=== PATIENT | male | born 1980 | race Caucasian/White ===

== ENCOUNTER 2018-04-02 02:05 | Outpatient (CLI) | payer OTHER, SELFPAY ==
[2018-04-02 10:07] LABS: ALT 57 U/L (12-78); AST 34 U/L (15-37); Alkaline Phosphatase 41 U/L (46-116); Anion Gap 10.8 mmol/L (3-11); BUN 9 mg/dL (7-18); Bilirubin, Total 0.5 mg/dL (0.2-1.0); CO2 28.2 mmol/L (21.0-32.0); CREATININE 1.06 mg/dL (0.70-1.30); Calcium 9.5 mg/dL (8.5-10.1); Chloride 101 mmol/L (98-107); Cholesterol 213 mg/dL (50-200); Glucose 92 mg/dL (70-100); HDL Cholesterol 39 mg/dL (40-60); LDL CHOLESTEROL 145 mg/dL (<100); Potassium 4.3 mmol/L (3.5-5.1); Sodium 140 mmol/L (136-145); Total Protein 7.4 g/dL (6.4-8.2); Triglyceride 210 mg/dL (30-150)
== END 2018-04-02 02:25 ==
PROVIDERS: PCP Specialist/Technologist Athletic Trainer; Visit Provider Specialist/Technologist Athletic Trainer
DX: Z00.00 Encounter for general adult medical examination without abnormal findings (principal); I10 Essential (primary) hypertension
CPT/HCPCS: 36415; 80053; 80061; 83721

== ENCOUNTER 2018-06-15 08:05 | Emergency (ER) | payer OTHER, SELFPAY ==
[2018-06-15 08:09] VITALS: BP 113/78; PULSE 120; RESP 18; TEMP 37.5; O2SAT 100
--- NOTE | 2018-06-15 08:20 | W.ED.GENAD ---
Discharge Plan Disposition Patient Disposition: HOME Condition: Improving Discharge Details Chief Complaint: Abd Prob Clinical Impression: Acute diverticulitis Primary Care Provider: Curt Roman ED Provider: Mona Spaulding Home Meds and New Rx's Prescriptions: New metronidazole [Flagyl] 500 mg tablet 500 mg PO TID 10 Days Qty: 30 RF: 0 ciprofloxacin HCl [Cipro] 500 mg tablet 500 mg PO BID 10 Days Qty: 20 RF: 0 Continued clobetasol-emollient 15 GM cream 1 applic Topical BID Qty: 2 RF: 1 aspirin [Aspir-81] 81 MG tablet,delayed release (DR/EC) 81 mg PO DAILY RF: 0 lisinopril 10 MG tablet 10 mg PO DAILY Qty: 90 RF: 3 hydrochlorothiazide 25 MG tablet 25 mg PO DAILY Qty: 90 RF: 3 metronidazole [Flagyl] 500 MG tablet 1 tab-cap PO TID Qty: 30 RF: 0 Discharge Instructions Instructions: Diverticulitis (ED), Diverticulitis Diet (ED) Additional Instructions: Drink plenty of fluids and get plenty of rest. Follow the diverticulitis diet and your instructions. Take the antibiotics until finished. Alternate Tylenol and Motrin as needed and directed for pain.. Follow-up with your primary care doctor in 3 days for reevaluation. Return immediately to the emergency department any worsening or concerning symptoms. Discharge Data Discharge Date/Time-TO BE ENTERED AT DEPARTURE: 06/15/18 10:44 Discharge Physician: Mona Spaulding Medical Decision Making 37yo M w/ a h/o diverticulitis with midline lower and left lower quadrant abdominal pain, nausea and diarrhea since last night. Heart rate tachycardic to the 120s. Blood pressure stable. Afebrile. Patient appears uncomfortable. Tenderness palpation in the midline lower left lower quadrant. No rebound, rigidity or guarding. Differential diagnosis includes diverticulitis, appendicitis, bowel obstruction. Will place an IV, bolus IV fluids, labs, urinalysis, morphine, Zofran and CT abdomen and pelvis. 914 --labs and imaging reviewed. Normal white blood cell count, electrolytes, lipase. CT notes sigmoid diverticulitis without abscess, free air and normal appendix. Patient states he feels much better and pain now 2/10. Will give another bolus IVF, ensure pt can urinate, tolerate PT and ambulate and if he continues to do well, will dc to home. Pt states he feels fine to go home. 1025 --patient feels better. He was able to drink fluids and no vomiting. He feels good to go home. Heart rate improved to low 100s. As patient took a dose of antibiotics at home, will hold on any doses now, and send home with prescriptions. He is instructed to follow-up with his primary care doctor in 3 days and return here at any time if worse. Just prior to dc, pt was standing and heart rate checked by nurse and is 120s. Pt denied any symptoms of dizziness, chest pain, shortness of breath. He states he feels better and is requesting to go home. He was instructed to drink plenty of fluids get plenty of rest, and return here with any worsening symptoms. Medical Records Medical records reviewed: Yes I reviewed the patient's medical records. Imaging Data Radiologic Study: Radiologist's impression: ABDOMEN AND PELVIC CT: CT scan of the abdomen and pelvis was performed following the uneventful administration of intravenous contrast material. There are no priors for comparison. No acute findings are seen in the lung bases. There does appear to be diffuse decreased attenuation of the liver suggesting hepatic steatosis. No hepatic mass is seen. The portal, superior mesenteric and splenic veins are patent. The gallbladder is negative. No biliary ductal dilatation is seen. The pancreas, spleen and adrenal glands are unremarkable. The kidneys show normal and symmetric enhancement. No suspicious solid renal mass or obstruction is identified. The urinary bladder is intact. The reproductive organs are unremarkable. The abdominal aorta is of normal caliber with minimal atherosclerosis. No significant abdominal or pelvic adenopathy or pneumoperitoneum is seen. There are diverticula seen in the descending and sigmoid colon. There is bowel wall thickening and pericolonic inflammatory change seen in the mid sigmoid colon consistent with acute diverticulitis. The remainder of the bowel is unremarkable. There is a normal appendix present. No abscess is appreciated. No acute osseous abnormality is identified. IMPRESSION: Findings of acute sigmoid diverticulitis. Lab Data Lab results reviewed: Yes I reviewed the patient's lab results. Laboratory Tests Range/Units 06/15/18 06/15/18 06/15/18 08:17 08:17 09:25 WBC (4.4-10.8) k/cumm 9.94 RBC (4.50-6.00) m/cumm 4.94 Hgb (13.5-17.5) g/dL 15.3 Hct (40.0-50.0) % 44.3 MCV (80-95) fL 89.7 MCH (27.0-33.0) pg 31.0 MCHC (32.0-36.0) g/dL 34.5 RDW (11.8-14.1) % 12.8 Plt Count (130-400) x1000/uL 218 MPV (8.0-11.0) fL 10.0 Immature Gran % 0.2 Neutrophils % 91.4 Lymphocytes % 6.2 Monocytes % 0.6 Eosinophils % 1.5 Basophils % 0.1 Absolute Neutrophils (1.2-6.7) k/cumm 9.08 H Absolute Lymphocytes (1.2-3.4) k/cumm 0.62 L Absolute Monocytes (0.11-0.7) k/cumm 0.06 L Absolute Eosinophils (0.0-0.7) k/cumm 0.15 Absolute Basophils (0.0-0.2) k/cumm 0.01 Sodium (136-145) mmol/L 138 Potassium (3.5-5.1) mmol/L 3.8 Chloride (98-107) mmol/L 100 Carbon Dioxide (21.0-32.0) mmol/L 28.0 Anion Gap (3-11) mmol/L 10.0 BUN (7-18) mg/dL 9 Creatinine (0.70-1.30) mg/dL 1.37 H Estimated GFR/1.73 m2 (mL/min/1.73m2) 58.47 Glucose (70-100) mg/dL 117 H Calcium (8.5-10.1) mg/dL 9.3 Total Bilirubin (0.2-1.0) mg/dL 1.0 AST (15-37) U/L 35 ALT (12-78) U/L 64 Alkaline Phosphatase (46-116) U/L 57 Total Protein (6.4-8.2) g/dL 7.5 Albumin (3.4-5.0) g/dL 3.6 Lipase (73-393) U/L 108 Urine Color (Yellow) Yellow Urine Clarity Clear Urine pH (5-8) 7.5 Ur Specific Cuthbert (1.005-1.025) 1.015 Urine Protein (Negative) mg/dL Negative Urine Ketones (Negative) mg/dL Negative Urine Blood (Negative) Negative Urine Nitrite (Negative) Negative Urine Bilirubin (Negative) Negative Urine Urobilinogen (Up TO 0.2) EU/dL 0.2 Ur Leukocyte Esterase (Negative) Negative Urine Glucose (Negative) mg/dL Negative HPI General Mode of arrival: ambulatory. Date/Time Provider Initiated Documentation: 06/15/18 08:15. Limitations to Documentation: no limitations. Information obtained by: patient. HPI Narrative: Patient is a 37-year-old male with a history of diverticulitis who presents the ED with a complaint of lower abdominal pain since last night. Patient states the pain is constant sharp in the lower middle and lower left abdomen, and currently 8/10. Patient states pain feels similar to previous diverticulitis. He admits to chills, nausea and multiple episodes of watery brown nonbloody diarrhea. He also admits to decreased urine output. He states he took 1 dose each of Cipro and Flagyl this morning. He denies any chest pain or shortness of breath. Related Data Home Medications Medication Instructions Recorded Confirmed clobetasol-emollient 1 applic TOPICAL BID #2 tube 04/03/16 aspirin [Aspir-81] 81 mg PO DAILY 05/05/16 hydrochlorothiazide 25 mg PO DAILY #90 tab-cap 06/10/16 lisinopril 10 mg PO DAILY #90 tab-cap 06/10/16 metronidazole [Flagyl] 1 tab-cap PO TID #30 tab-cap 08/08/16 ciprofloxacin HCl [Cipro] 500 mg PO BID 10 Days #20 tab 06/15/18 metronidazole [Flagyl] 500 mg PO TID 10 Days #30 tab 06/15/18 Previous Rx's Medication Instructions Recorded ciprofloxacin HCl [Cipro] 500 mg PO BID 10 Days #20 tab 06/15/18 metronidazole [Flagyl] 500 mg PO TID 10 Days #30 tab 06/15/18 Allergies Allergy/AdvReac Type Severity Reaction Status Date / Time No Known Allergies Allergy Unverified 07/14/16 14:44 General Stated Complaint: Abd Prob SUJEY: 3 Review of Systems Review of Systems All systems reviewed & are unremarkable except as noted in HPI and below Constitutional Reports as per HPI, Denies chills and Denies fever(s) Eyes Denies blurry vision ENT Denies dizziness, Denies sore throat and Denies throat swelling Cardiovascular Denies chest pain and Denies dyspnea Respiratory Denies cough and Denies dyspnea Gastrointestinal Reports abdominal pain, Denies diarrhea and Denies vomiting Genitourinary Denies hematuria and Denies dysuria Musculoskeletal Denies back pain and Denies numbness Integumentary/Breasts Denies lesions and Denies rash Neurologic Denies dizziness, Denies focal weakness and Denies numbness Allergic/Immunologic Denies throat swelling [facility] Medical History History of diverticulitis (Acute) Hyperlipemia (Acute) HTN (hypertension) (Chronic) Surgical History History of tonsillectomy (Chronic) Family History Mother No problems noted. Father Diabetes Essential hypertension Heart disease Sister No problems noted. Grandfather Essential hypertension Grandfather Diabetes Grandmother No problems noted. Grandmother Stroke Social History Smoking and Tabacco status: Former Tobacco Use alcohol intake: current alcohol intake frequency: 0-2 drinks per day substance use type: does not use Exam Const General: cooperative and other (appears uncomfortable) Nutritional Appearance: obese morbidly obese Orientation: alert and awake HENMT Head: normal to inspection Face and sinus: normal facial exam Eyes General: appearance normal, both eyes and all related structures Neck Neck: normal visual inspection Chest Chest: normal inspection of the chest and no tenderness Resp Effort & Inspection: normal respiratory effort and able to speak in complete sentences Auscultation: clear to auscultation bilaterally Cardio Rate: regular rate Rhythm: regular rhythm GI Inspection: obesity Palpation: soft, not firm, not rigid and tender in the LLQ and suprapubicly Auscultation: hypoactive bowel sounds Male General Exam: Yes normal external exam Penis: normal penis Scrotum: scrotum normal Testes: normal, no testicular swelling and no testicular tenderness Skin General skin exam: no rashes or lesions noted Neuro General: alert, awake and oriented x3 Cognition: normal cognition Speech: speech normal Motor: muscle tone normal throughout Sensory Exam: no sensory deficits noted Extrem General: normal to inspection, full ROM and no edema Psych Appearance: grossly normal Mental Status: mental status grossly normal Speech and Movement: speech and movement normal Affect: normal affect Course Vital Signs Temperature 99.5 F 06/15/18 08:09 Pulse 120 H 06/15/18 08:09 Respiratory Rate 18 06/15/18 08:09 Blood Pressure 113/78 06/15/18 08:09 Pulse Oximetry 100 06/15/18 08:09 Temperature 99.5 F 06/15/18 08:09 Temperature Source Temporal Artery Scan 06/15/18 08:09 Pulse 120 H 06/15/18 08:09 Respiratory Rate 18 06/15/18 08:09 Blood Pressure 113/78 06/15/18 08:09 Blood Pressure Position Sitting 06/15/18 08:09 Pulse Oximetry 100 06/15/18 08:09 Oxygen Delivery Method Room Air 06/15/18 08:09 Oxygen Flow Rate 0 06/15/18 08:09 Pain Level 10 06/15/18 08:09
[2018-06-15] MEDS: Ondansetron 4 MG/2 ML VIAL IVP (08:24)
[2018-06-15] MEDS: Normal Saline 1,000 ML 1000 ML IV ×2 (08:24→09:28)
[2018-06-15 08:28] LABS: Abs Immature Grans 0.02 k/cumm (0.0-0.09); Absolute Basophil Count 0.01 k/cumm (0.0-0.2); Absolute Eosinophil Count 0.15 k/cumm (0.0-0.7); Absolute Lymphocyte Count 0.62 k/cumm (1.2-3.4); Absolute Monocyte Count 0.06 k/cumm (0.11-0.7); Absolute Neutrophil Count 9.08 k/cumm (1.2-6.7); Basophils % 0.1; Eosinophils % 1.5; HCT 44.3 % (40.0-50.0); HGB 15.3 g/dL (13.5-17.5); Immature Grans % 0.2; Lymphocytes % 6.2; Mean Corp. HGB Concentration 34.5 g/dL (32.0-36.0); Mean Corpuscular Volume 89.7 fL (80-95); Monocytes % 0.6; Neutrophils % 91.4; Platelet Count 218 x1000/uL (130-400); RBC 4.94 m/cumm (4.50-6.00); RBC Distribution Width 12.8 % (11.8-14.1); White Blood Cell Count 9.94 k/cumm (4.4-10.8)
[2018-06-15 08:41] LABS: ALT 64 U/L (12-78); AST 35 U/L (15-37); Albumin 3.6 g/dL (3.4-5.0); Alkaline Phosphatase 57 U/L (46-116); BUN 9 mg/dL (7-18); CREATININE 1.37 mg/dL (0.70-1.30); Chloride 100 mmol/L (98-107); Estimated GFR 58.47 (mL/min/1.73m2); Glucose 117 mg/dL (70-100); Lipase 108 U/L (73-393); Potassium 3.8 mmol/L (3.5-5.1); Sodium 138 mmol/L (136-145); Total Protein 7.5 g/dL (6.4-8.2)
[2018-06-15 08:47] LABS: Calcium 9.3 mg/dL (8.5-10.1)
[2018-06-15] MEDS: Omnipaque 350 MG/ML 100 ML BTL IJ (09:00)
[2018-06-15] MEDS: Omnipaque 350 MG/ML 50 ML BTL 25 ML IJ (09:01)
[2018-06-15 09:17] VITALS: BP 121/63
--- NOTE | 2018-06-15 09:29 | DI.CT_ITS ---
SYMPTOM/DIAGNOSIS: LOW ABD PAIN, H/O DIVERTICULITIS ABDOMEN AND PELVIC CT: CT scan of the abdomen and pelvis was performed following the uneventful administration of intravenous contrast material. There are no priors for comparison. No acute findings are seen in the lung bases. There does appear to be diffuse decreased attenuation of the liver suggesting hepatic steatosis. No hepatic mass is seen. The portal, superior mesenteric and splenic veins are patent. The gallbladder is negative. No biliary ductal dilatation is seen. The pancreas, spleen and adrenal glands are unremarkable. The kidneys show normal and symmetric enhancement. No suspicious solid renal mass or obstruction is identified. The urinary bladder is intact. The reproductive organs are unremarkable. The abdominal aorta is of normal caliber with minimal atherosclerosis. No significant abdominal or pelvic adenopathy or pneumoperitoneum is seen. There are diverticula seen in the descending and sigmoid colon. There is bowel wall thickening and pericolonic inflammatory change seen in the mid sigmoid colon consistent with acute diverticulitis. The remainder of the bowel is unremarkable. There is a normal appendix present. No abscess is appreciated. No acute osseous abnormality is identified. IMPRESSION: Findings of acute sigmoid diverticulitis. The findings were discussed with Mona Spaulding of the ER on the date of the examination.
[2018-06-15 09:35] LABS: Bilirubin Negative (Negative); Blood Negative (Negative); Clarity Clear; Glucose Negative (Negative); Ketones Negative (Negative); Leukocyte Esterase Negative (Negative); Nitrite Negative (Negative); Specific Gravity 1.015 (1.005-1.025); Urobilinogen 0.2 EU/dL (Up TO 0.2); pH 7.5 (5-8)
[2018-06-15 10:44] VITALS: BP 128/78; PULSE 121; RESP 20; TEMP 37.2; O2SAT 94
== END 2018-06-15 10:44 | disposition home or self-care (01) ==
PROVIDERS: Emergency Provider Physician Assistant; PCP Specialist/Technologist Athletic Trainer
DX: K57.30 Diverticulosis of large intestine without perforation or abscess without bleeding (principal)
CPT/HCPCS: 80053; 83690; 96361; 96374; 96375; 99285; 74177; 81003; 85025; 99284; J2405; J3490; Q9967

== ENCOUNTER 2019-03-21 13:23 | Outpatient (REF) | payer OTHER, SELFPAY ==
[2019-03-21 20:58] LABS: Hemoglobin A1C 5.7 % (4.5-6.2)
[2019-03-21 21:01] LABS: Anion Gap 10.2 mmol/L (3-11); BUN 12 mg/dL (7-18); CO2 28.8 mmol/L (21.0-32.0); CREATININE 1.14 mg/dL (0.70-1.30); Calcium 9.6 mg/dL (8.5-10.1); Calculated LDL 134 mg/dL; Chloride 100 mmol/L (98-107); Cholesterol 229 mg/dL (<200); Glucose 102 mg/dL (74-106); HDL Cholesterol 35 mg/dL (40-60); Sodium 139 mmol/L (136-145); Triglyceride 303 mg/dL (<150)
== END 2019-03-21 13:43 ==
LOC: NCHCN 13:23
PROVIDERS: PCP Specialist/Technologist Athletic Trainer; Visit Provider Physician Assistant Medical
DX: R73.01 Impaired fasting glucose (principal); I10 Essential (primary) hypertension
CPT/HCPCS: 80048; 80061; 83036

== ENCOUNTER 2019-07-05 11:40 | Outpatient (CLI) | payer OTHER, SELFPAY ==
--- NOTE | 2019-07-05 | DI.RAD_ITS ---
EXAM: XR WRIST LT COMP NAVICULAR CLINICAL HISTORY: PAIN IN LT WRIST, M25.532. TECHNIQUE: 2D digital imaging was performed. COMPARISON: No exams were available for comparison FINDINGS: BONES: No acute fracture is present. No bony destructive lesion is seen. JOINTS: The carpal bones are normally aligned. SOFT TISSUE: Normal. IMPRESSION: Unremarkable radiographs of the left wrist. DATA REPOSITORY: RADIATION DOSE DELIVERED:
== END 2019-07-05 12:00 ==
PROVIDERS: PCP Specialist/Technologist Athletic Trainer; Visit Provider Physician Assistant Medical
DX: M25.532 Pain in left wrist (principal)
CPT/HCPCS: 73110

== ENCOUNTER 2020-05-30 11:24 | Outpatient (REF) | payer OTHER, SELFPAY ==
[2020-05-30 21:40] LABS: Abs Immature Grans 0.02 10^3/uL (0.0-0.06); Absolute Basophil Count 0.06 10^3/uL (0.0-0.2); Absolute Lymphocyte Count 1.82 10^3/uL (1.2-3.4); Absolute Monocyte Count 0.66 10^3/uL (0.1-0.8); Absolute Neutrophil Count 4.74 10^3/uL (1.2-6.7); Basophils % 0.8; Eosinophils % 3.9; HCT 44.3 % (40.0-50.0); Immature Grans % 0.3; Lymphocytes % 23.9; MCH 30.7 pg (27.0-33.0); MCHC 33.9 % (32.0-36.0); MCV 90.6 fL (80-95); MPV 11.2 fL (8.0-11.0); Monocytes % 8.7; Neutrophils % 62.4; Nucleated RBC 0 %; Platelet Count 238 10^3/uL (130-400); RBC 4.89 10^6/uL (4.36-5.78); RDW 13.3 % (11.8-14.1); RDW-SD 44.4 fL
[2020-05-30 22:01] LABS: ALT 87 U/L (16-63); AST 61 U/L (15-37); Albumin 4.3 g/dL (3.4-5.0); Alkaline Phosphatase 42 U/L (46-116); Anion Gap 9.2 mmol/L (3-11); BUN 9 mg/dL (7-18); Bilirubin, Total 0.4 mg/dL (0.2-1.0); CO2 27.8 mmol/L (21.0-32.0); Calcium 9.7 mg/dL (8.5-10.1); Chloride 104 mmol/L (98-107); Glucose 90 mg/dL (74-106); Potassium 4.6 mmol/L (3.5-5.1); Sodium 141 mmol/L (136-145); TSH (W/Ref FT4) 1.88 uIU/mL (0.36-3.74)
[2020-05-30 22:03] LABS: Hemoglobin A1C 5.6 % (<5.7)
[2020-05-30 22:18] LABS: Calculated LDL 134 mg/dL (<100); Cholesterol 214 mg/dL (<200); HDL Cholesterol 42 mg/dL (40-60); Triglyceride 194 mg/dL (<150)
[2020-06-01 11:47] LABS: Hepatitis A Antibody IgM Negative (Negative); Hepatitis B Core Antibody Negative (Negative); Hepatitis B surface Ag Negative (Negative); Hepatitis C Ab w Rflx HCV PCR Negative (Negative)
== END 2020-05-30 11:25 | disposition home or self-care (01) ==
LOC: NCHCN 11:24
PROVIDERS: PCP Specialist/Technologist Athletic Trainer; Visit Provider Physician Assistant Medical
DX: R79.89 Other specified abnormal findings of blood chemistry (principal); E78.2 Mixed hyperlipidemia; I10 Essential (primary) hypertension; R73.03 Prediabetes
CPT/HCPCS: 80053; 80061; 86704; 86709; 86803; 87340; 83036; 84443; 85025

== ENCOUNTER 2021-11-05 17:23 | Outpatient (REF) | payer OTHER, SELFPAY ==
[2021-11-05 15:40] LABS: HCT 45.3 % (40.0-50.0); HGB 15.7 g/dL (13.5-17.5); MCH 29.8 pg (27.0-33.0); MCHC 34.7 % (32.0-36.0); MCV 86 fL (80-95); MPV 11.2 fL (8.0-11.0); Platelet Count 275 10^3/uL (130-400); RBC 5.26 10^6/uL (4.36-5.78); RDW-SD 40.5 fL; WBC 10.09 10^3/uL (4.4-10.8)
[2021-11-05 15:53] LABS: Hemoglobin A1C 5.5 % (<5.7)
[2021-11-05 16:09] LABS: Iron 65 ug/dL (65-175); Total Iron Binding Capacity 354 ug/dL (250-450); Transferrin Sat 18 % (20-55)
[2021-11-05 16:10] LABS: ALT 44 U/L (16-63); AST 34 U/L (15-37); Albumin 3.8 g/dL (3.4-5.0); Alkaline Phosphatase 54 U/L (46-116); Anion Gap 8.6 mmol/L (3-11); BUN 10 mg/dL (7-18); Bilirubin, Total 0.4 mg/dL (0.2-1.0); CO2 28.4 mmol/L (21.0-32.0); CREATININE 1.2 mg/dL (0.70-1.30); Calcium 9.4 mg/dL (8.5-10.1); Chloride 101 mmol/L (98-107); Ferritin 305 ng/mL (26-388); Glucose 100 mg/dL (74-106); Potassium 4.4 mmol/L (3.5-5.1); Sodium 138 mmol/L (136-145); Total Protein 8.1 g/dL (6.4-8.2)
[2021-11-06 13:38] LABS: Ceruloplasmin 27.7 mg/dL
== END 2021-11-05 17:24 | disposition home or self-care (01) ==
LOC: NCHCN 17:23
PROVIDERS: PCP Specialist/Technologist Athletic Trainer; Visit Provider Physician Assistant Medical
DX: Z00.00 Encounter for general adult medical examination without abnormal findings (principal); R73.03 Prediabetes; R79.89 Other specified abnormal findings of blood chemistry
CPT/HCPCS: 80053; 82390; 85027; 82728; 83036; 83540; 83550

== ENCOUNTER 2023-01-28 20:15 | Outpatient (REF) | payer OTHER, SELFPAY ==
[2023-01-28 20:32] LABS: HCT 46.2 % (40.0-50.0); HGB 15.9 g/dL (13.5-17.5); MCH 30.1 pg (27.0-33.0); MCHC 34.4 % (32.0-36.0); MCV 87 fL (80-95); MPV 10.9 fL (8.0-11.0); Platelet Count 247 10^3/uL (130-400); RBC 5.29 10^6/uL (4.36-5.78); RDW 12.8 % (11.8-14.1); RDW-SD 40.9 fL; WBC 8.93 10^3/uL (4.4-10.8)
[2023-01-28 21:06] LABS: Hemoglobin A1C 5.6 % (<5.7)
[2023-01-28 21:17] LABS: ALT 41 U/L (16-63); AST 32 U/L (15-37); Albumin 3.8 g/dL (3.4-5.0); Alkaline Phosphatase 46 U/L (46-116); Anion Gap 9.8 mmol/L (3-11); BUN 10 mg/dL (7-18); Bilirubin, Total 0.3 mg/dL (0.2-1.0); CO2 24.2 mmol/L (21.0-32.0); Calcium 9.7 mg/dL (8.5-10.1); Calculated LDL 153 mg/dL (<100); Chloride 102 mmol/L (98-107); Cholesterol 234 mg/dL (<200); Estimated GFR 96.37 (mL/min/1.73m2); Glucose 93 mg/dL (74-106); HDL Cholesterol 41 mg/dL (40-60); Sodium 136 mmol/L (136-145); Total Protein 8.2 g/dL (6.4-8.2); Triglyceride 200 mg/dL (<150)
== END 2023-01-28 20:16 | disposition home or self-care (01) ==
LOC: NCHCN 20:15
PROVIDERS: PCP Specialist/Technologist Athletic Trainer; Visit Provider Physician Assistant Medical
DX: I10 Essential (primary) hypertension (principal); R79.89 Other specified abnormal findings of blood chemistry; E78.2 Mixed hyperlipidemia
CPT/HCPCS: 80053; 80061; 85027; 83036

== ENCOUNTER 2024-02-02 16:14 | Outpatient (REF) | payer OTHER, SELFPAY ==
--- OUTSIDE RECORDS SUMMARY | 2024-02-02 16:18 | XMS_ITS | Continuity of Care Document ---
Author Organization [facility] Address [address] [place] [address] Care Team Providers Care Piecer Name Role Phone Cherelle Sauceda Isabel Primary Care Physician Encounter [facility] [id number] Date(s): 09/05/22 - 09/05/22 [facility] [address] [place] [address] Discharge Disposition: Home Allergies, Adverse Reactions, Alerts Substance Reaction Severity Status lisinopril Moderate Active Formaldehyde Mild Active Seafood Severe Active Amlodipine/HCTZ/Olmesartan Medoxomil Mode rate Active Assessment and Plan Future Appointments Medications aspirin 81 mg oral capsule 81 mg = 1 cap, Oral, Daily, do not exceed 48 capsules in 24 hours, # 30 cap, 0 Refill(s) Start Date: 09/03/22 Status: Ordered betamethasone dipropionate 0.05% topical cream 1 peggy, Topical, BID, # 15 g, 0 Refill(s) Start Date: 09/03/22 Status: Ordered clobetasol 0.05% topical foam 1 peggy, Topical, BID, # 100 g, 0 Refill(s) Start Date: 09/03/22 Status: Ordered Fish Oil 1000 mg oral capsule 1,000 mg = 1 cap, Oral, Daily, # 90 cap, 0 Refill(s) Start Date: 09/03/22 Status: Ordered losartan 50 mg oral tablet 50 mg = 1 tab, Oral, Daily, # 90 tab, 0 Refill(s) Start Date: 09/03/22 Status: Ordered Multiple Vitamins oral capsule 1 cap, Oral, Daily, # 90 cap, 0 Refill(s) Start Date: 09/03/22 Status: Ordered triamcinolone 0.1% topical cream 1 peggy, Topical, BID, # 80 g, 0 Refill(s) Start Date: 09/03/22 Status: Ordered zolpidem 5 mg oral tablet See Instructions, take 1-2 PO night of sleep study as needed, # 2 tab, 0 Refill(s), Pharmacy: [id number] Start Date: 09/04/22 Status: Ordered Problem List Condition Confirmation Course Effective Dates Status H ealth Status Informant BMI 30+ - obesity Confirmed Active Diverticulitis Confirmed Active Eczema Confirmed Active Elevated left intraocular pressure Confirmed Active Essential hypertension Confirmed Active History of colonic polyp Confirmed Active History of COVID-19 Confirmed Active Prediabetes Confirmed Active Sinusitis Confirmed Active Snoring Confirmed Active Social History Social History Type Response Tobacco Never tobacco user T obacco Use:. Sex Patient Care team information Care Team Personnel Name: Cherelle Sauceda PA-C Position: No Access Member Role: Primary Care Physician Address: Address: [facility] [address] [place] [address]- Care Team Related Persons Name: DEMETRIO NAVARRO Address: Home [address] [place] [id number]
--- OUTSIDE RECORDS SUMMARY | 2024-02-02 16:18 | XMS_ITS | Encounter Summary ---
Author Organization [facility] [place] [address] Care Team Providers Care Mortgage Lender Name Role Phone Curt Roman Primary Care Provider [phone] Reason for Visit * Reason Comments Follow-up Encounter Details Date Type Department Care Team (Late st Contact Info) Description 01/15/2018 3:15 PM EDT Office Visit Dermatology at [place] [address] [place] [address] Barb Tompkins MD [facility] [address] [address] Eczema, unspecified type (Primary Dx) Social History Tobacco Use Types Packs/Day Years Used Date Smoking Tobacco: Former Smokeless Tobacco: Never Sex and Gender Information Value Date Recorded Sex Assigned at Male 10/29/2020 7:31 AM EDT Gender Identity Not on file Sexual Orientation Straight 10/29/2020 7: 31 AM EDT documented as of this encounter Progress Notes * Barb Tompkins MD - 01/15/2018 3:15 PM EDT Images from the original note were not included. DERMATOLOGY - ESTABLISHED PATIENT FOLLOW-UP Date of service: 01/15/2018 Kristopher Canela : 1980, 37 y.o. Chief Complaint Patient presents with ??? Follow-up HPI: Kristopher Canela is a 37 y.o. male last seen by myself on 11/02/2017. Since last visit -- apply Diprolene to rash BID w diligent moisturization -- excellent response. When he stops, rash slowly returns. But significantly improving. Happy w response, but wondered what the original cause was. Relevant Skin History: - Okay to leave detailed message with results? Yes - Eczematous dermatitis hx: March 2017 had diverticulitis, treated with Flagyl and Cipro as outpatient. Multiple episodes ofdiverticulitis in the past treated w the same medications in past. May 2017 started itching, has been increasingly worse, better with each prednisone taper. Transient, however. Rebounds after completing these courses One course ~2 weeks -- Dr. Vital from [facility]. States he had a biopsy on his phillips, showed eczematous changes -- outside path, we do not have it. He denies any swelling of his legs. He has not really moisturizing his skin. He is unaware of a hx of childhood rashes or asthma. He has not had reactions to poison karen/oak in the past. Family History: Family members with allergic rhinitis No known hx of psoriasis ?? 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 augmented betamethasone dipropionate (DIPROLENE-AF) 0.05 % Ointment Apply twice daily to the LEGS for threes weeks, take a week off. Repeat cycle as needed. 50 g 1 ??? triamcinolone (KENALOG) 0.1 % Ointment Apply twice daily to trunk and extremities for two weeks, take a week off. Repeat cycle as needed. 454 g 0 ??? predniSONE (DELTASONE) 20 mg Tablet 60 mg x 5 days 40 mg x 5 days 20 mg x 5 days 30 tablet 0 ??? clobetasol (TEMOVATE) 0.05 % Ointment apply to RIGHT PHILLIPS, ABDOMEN, BOTH SHOULDERS twice a day UNTIL RASH CLEARS 0 ??? lisinopril (PRINIVIL;ZESTRIL) 10 mg Tablet No current facility-administered medications for this visit. Allergies: No Known Allergies Review of Systems: - General: Feels well. - Skin: No other skin concerns. Examination: - Constitutional: Patient was alert, well-appearing and in no noticeable distress. - Skin: Examination of skin from the waist up was performed. This includes examination of the skin of the face, ears, neck, chest, axillae, left and right upper extremities, hands, back, and abdomen. Diagnosis/Skin findings/Assessment/Plan: 1. Eczematous dermatitis, somewhat controlled: Eczematous patches on the lower legs and on the lower abdomen. Hyperpigmented patches on the upper back, arms, and lower back c/w PIH. -Favoring atopic dermatitis, possibly initiated by drug rash from meds taken for diverticulitis -Contact dermatitis is also possible but less likely. Patient wanted to r/o ACD -- will schedule for patch testing w extended series w ca in the near future. -Refill Rx: Aug betamethasone dipropionate 0.05% ointment - Apply BID to affected areas for 2 weeks, then take 1 week off. Repeat as needed. Only use during flare-ups. - Rx: Tacrolimus 0.1% ointment - Apply to affected areas twice daily. Counseled on side effects. RTC: For next available patch testing. Routed for scheduling. Note initiated by Dalila Warren CMA. I, Anastasiia Richmond, have performed the documentation for this encounter in the presence of and acting as a scribe for Barb Tompkins MD. I performed the above scribed service and agree with the accuracy of the documentation in this encounter. Reviewed and signed by: Barb Tompkins MD Resident in Dermatology [facility] Patient seen and evaluated with staff clinical rehabilitation coordinator: Anila Tovar MD Section of Dermatology [facility] * Anila Tovar MD - 01/15/2018 3:15 PM EDT I directly supervised Dr. Barb Tompkins during this office visit. Dr. Tompkins presented the history and physical exam to me. I then saw and examined this patient with Dr. Tompkins. We reviewed the history and pertinent details and I confirmed the physical findings. I agree with the details of the history and physical exam as documented in Dr. Tompkins's note. ANILA TOVAR MD Staff Physician documented in this encounter Plan of Treatment Not on file documented as of this encounter Visit Diagnoses Diagnosis Eczema, unspecified type- Primary documented in this encounter Care Teams Mortgage Lender Relationship Specialty Start Date End Date Curt Roman PA [address] [place] [address] PCP - General General Internal Medicine 06/18/1709/23 documented as of this encounter
--- OUTSIDE RECORDS SUMMARY | 2024-02-02 16:18 | XMS_ITS | Encounter Summary ---
Author Organization [facility] [place] [address] Care Team Providers Care Marble Chip Terrazzo Worker Name Role Phone Curt Roman Primary Care Provider [phone] Encounter Details Date Type Department Care Team (Late st Contact Info) Description 01/18/2018 Telephone Dermatology at [facility] [address] [place] [address] Barb Tompkins MD [facility] [address] [address] Social History Tobacco Use Types Packs/Day Years Used Date Smoking Tobacco: Former Smokeless Tobacco: Never Sex and Gender Information Value Date Recorded Sex Assigned at Male 10/29/2020 7:31 AM EDT Gender Identity Not on file Sexual Orientation Straight 10/29/2020 7: 31 AM EDT documented as of this encounter Miscellaneous Notes * Telephone Encounter - Janis Ordoñez - 01/20/2018 8:53 AM EDT Called and left a message for Kristopher Canela requesting a call back to schedule. I will send him a letter * Telephone Encounter - Janis Ordoñez - 01/18/2018 9:02 AM EDT Called and left a message for Kristopher Canela requesting a call back to schedule the next available Thursday, Thursday, and Thursday for patch testing with Dr Tompkins. documented in this encounter Plan of Treatment Not on file documented as of this encounter Visit Diagnoses Not on filedocumented in this encounter Care Teams Marble Chip Terrazzo Worker Relationship Specialty Start Date End Date Curt Roman PA [address] [place] [address] PCP - General General Internal Medicine 06/18/1709/23 documented as of this encounter
--- OUTSIDE RECORDS SUMMARY | 2024-02-02 16:18 | XMS_ITS | Encounter Summary ---
[place] [address] Care Team Providers Care Matcher Leather [employer] Name Role Phone Cherelle Sauceda Primary Care Provider [phone] Reason for Visit * Consultation (Routine) - Closed Specialty Diagnoses / Procedures Referred By Contjulissa t Referred To Contact Gastroenterology Diagnoses Elevated LFTs Family hx of Adenomatous polyps Procedures Consult Cherelle Sauceda PA [address] [place] [address] [facility] [place] [address] [address] Referral ID Status Reason Start Date Expiration Date Visits Re quested Visits Authorized [id number] Closed 06/15/2020 06/15/2021 1 1 Encounter Details Date Type Department Care Team (Latest Contact Info) Description 10/29/2020 4:00 PM EDT TH Visit (TeleHealth) [place] [address] Wiliam Powell PA [address] [place] [id number] Elevated liver enzymes; Fatty liver; Obesity, unspecified classification, unspecified obesity type, unspecified whether serious comorbidity present; Prediabetes; Hyperlipidemia, unspecified hyperlipidemia type; Metabolic syndrome Social History Tobacco Use Types Packs/Day Years Used Date Smoking Tobacco: Former Cigarettes Q uit: 10/09/2013 Smokeless Tobacco: Never Sex and Gender Information Value Date Recorded Sex Assigned at Male 10/29/2020 7:31 AM EDT Gender Identity Not on file Sexual Orientation Straight 10/29/2020 7: 31 AM EDT documented as of this encounter Progress Notes * Wiliam Powell PA - 10/29/2020 4:00 PM EDT Images from the original note were not included. 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 Eczema L30.9 ??? Metabolic syndrome E88.81 ??? Hyperlipidemia E78.5 ??? Prediabetes R73.03 ??? Obesity E66.9 ??? Hypertension I10 ??? Tremor R25.1 ??? Polyp of colon, adenomatous D12.6 ??? History of diverticulitis Z87.19 HISTORY OF PRESENT ILLNESS Kristopher Canela is a 40 y.o. male referred to hepatology clinic for evaluation of elevated liver enzymes. Patient verbally consents to this telehealth video visit and understands that this visit may be billed, similar to a clinic office visit. He states that he had some routine blood work earlier in the year and liver tests were abnormal andso it was recommended that he be referred to a liver specialist. He has never seen a liver specialist in the past. He understands that the concern is for fatty liver because this was apparently notedon a prior CT scan. He has done some research on this and understands it can be related to weight and diet. He does also admit however that he drinks regular alcohol, on average a couple of drinks every day. He admits he does get drunk at parties and probably has drank more in the last year then prior. He is trying to cut down on his alcohol and only drinking mostly light beer. He states that he has been able to lose a few pounds. He weighs roughly 290 pounds at the moment but this fluctuates alot. He felt his healthiest when he was in high school when he weighed about 225 pounds and he was in excellent shape. In regard to symptoms, he states that he has occasional bouts of bloating and nausea but believes this is mostly related to poor diet choices especially when he eats fatty/greasy foods. He has a history of diverticulitis in the past as well. He feels that he likely has sleep apnea because he wakes up quite a bit at night, often in a lot ofsweat. He has a hard time falling asleep at night and sometimes takes several hours. He believes he had hepatitis a and B vaccines in the past. REVIEW OF SYSTEMS As in the HPI, the rest of the review of systems were negative. MEDICATIONS Current Outpatient Medications Medication Sig Dispense Refill ??? lhepx-1f-jmf-epa-fish oil 300-1,000 mg Capsule Take by mouth. ??? losartan (Cozaar) 50 mg Tablet Take 50 mg by mouth daily. ??? aspirin EC 81 mg Tablet, Delayed Release (E.C.) Take 81 mg by mouth daily. ??? multivitamin (THERAGRAN) Tablet Take 1 tablet by mouth daily. ??? tacrolimus (PROTOPIC) 0.1 % Ointment Apply topically twice daily to all affected areas 100 g 3 ??? augmented betamethasone dipropionate (DIPROLENE-AF) 0.05 % Ointment During flare-ups,apply to rashes twice daily up to two weeks.. Spare the groin, armpits and face. 50 g 1 ??? triamcinolone (KENALOG) 0.1 % Ointment Apply twice daily to trunk and extremities for two weeks, take a week off. Repeat cycle as needed. 454 g 0 ??? clobetasol (TEMOVATE) 0.05 % Ointment apply to RIGHT PHILLIPS, ABDOMEN, BOTH SHOULDERS twice a day UNTIL RASH CLEARS 0 No current facility-administered medications for this visit. ALLERGIES Allergies Allergen Reactions ??? 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 There is no height or weight on file to calculate BMI. Weight = ~290 lbs Constitutional: Well appearing, appropriate, no acute distress Skin: No cyanosis, no palmar erythema, no jaundice, no spider angiomata Head: Normocephalic, sclerae anicteric, oropharynx within noral limits, bearded CVS: Not performed Lungs: Not performed Abdomen: Increased central adiposity, nondistended Neurologic: Alert and oriented x 3, no asterixis or tremor Extremities: No edema, no clubbing, no muscle wasting, no joint swelling RESULTS No results found for this or any previous visit (from the past 24 hour(s)). Non- Laboratory: 05/30/20 @ [facility]: FIB-4 = 1.07 Imaging: No abdominal imaging on record ASSESSMENT/PLAN Kristopher Canela is a 40 y.o. male with past medical history of obesity, prediabetes, hypertension, hyperlipidemia, and likely sleep apnea who was found on routine blood work to have moderately elevated transaminases in May of this year. According to PCP notes, he had a CT scan in 2019 suggesting fatty liver (report not available in referral documents). He does admit to daily alcohol consumption at least a couple drinks daily and in the last year likely increased his consumption. Given his metabolic risks and alcohol use, I think this very likely represents a mixed picture of nonalcoholic and alcohol related fatty liver disease, likely with steatohepatitis, although this is a histologic diagnosis. Since we are meeting only via telemedicine, we are unable to perform a FibroScan test today to estimate fibrosis. With his labs from May however a FIB-4 score of 1.07 suggest the absence of advanced fibrosis with a negative predictive value of approximately 90%. Given his lack of liver relatedsymptoms and this score, I think it is unlikely he has any advanced liver disease though cannot rule out mild or moderate fibrosis. Would be helpful to repeat labs now to see if there is any progressor change in his decreased alcohol consumption and subtle weight loss, though he likely will need to continue improving these things. Also discussed with him that we cannot rule out any other potential causes of elevated LFTs such as genetic/metabolic disease, especially given his young age. I do not believe his transaminases are elevated to the point where we would need to consider checking for autoimmune hepatitis, though if they do not improve with diet and lifestyle modifications we may need to consider additional work-up. Fatty liver disease is one of the most common causes of liver disease in the [place]. It is regarded as the liver manifestation of metabolic syndrome, associated with cardiovascular disease andpredisposition to developing diabetes. The goals of treatment are treating or managing risk factors. We discussed the importance of lifestyle interventions and making healthy food choices as the backbone of treatment for this condition. We set realistic weight loss goals; goal is to focus on loosing 10-15% of total body weight over a year by incorporating regular exercise, lifestyle modifications, and healthy food choices including portion control. In addition I would recommend avoiding high fructose corn syrup and artifical sweeteners. Diet should be low in carbohydrates and high in protein,similar to a diabetic or Mediterranean diet. Plan: -Repeat labs now, orders faxed to [facility]: CBC, CMP, ferritin, iron/TIBC, ceruloplasmin -If FIB-4 is greater than 1.3, I will recommend he come down to [facility] for a FibroScan exam. -If FIB-4 is stable and/or improved, will follow-up in approximately 6 months following above lifestyle/dietary modifications. -Discussed above lifestyle/dietary modifications. Mediterranean diet guidelines advised. -Continue fish oil/omega-3 fatty acid supplement. -Considering he has prediabetes, likely will not benefit from vitamin E supplementation. -Continue all other medications as prescribed. -Decrease alcohol consumption is much as possible. -Hepatology follow-up pending labs. -Follow-up with primary care as needed/planned. -I do recommend he undergo outpatient sleep evaluation. Time spent reviewing records prior to this encounter: 7 minutes Time spent during encounter with patient including counselin minutes Time spent documenting encounter on date of service: 20 minutes Approximate total time devoted to this single encounter on date of service: 77 minutes Wiliam Powell PA-C Section of [place]astroenterology [place] [address] Copy: MCKENNA Diaz documented in this encounter Plan of Treatment Not on file documented as of this encounter Visit Diagnoses Diagnosis Elevated liver enzymes Nonspecific elevation of levels of transaminase or lactic acid dehydrogenase (LDH) Fatty liver Other chronic nonalcoholic liver disease Obesity, unspecified classification, unspecified obesity type, unspecified whether serious comorbidity present Prediabetes Other abnormal glucose Hyperlipidemia, unspecified hyperlipidemia type Metabolic syndrome Dysmetabolic Syndrome X documented in this encounter Care Teams Matcher Leather Parts Relationship Specialty Start Date End Date Cherelle Sauceda PA [address] [place] [address] PCP - General Family Medicine 09/24/20 documented as of this encounter
--- OUTSIDE RECORDS SUMMARY | 2024-02-02 16:18 | XMS_ITS | Referral Summary ---
Author Organization [facility] Address [address] [place] [address] Care Team Providers Care Clerk Telegraph Service Name Role Phone Unknown, Provider Primary Care Provider [phone] Social History Tobacco Use Types Packs/Day Years Used Date Smoking Tobacco: Never Assessed Interpersonal Safety Answer Date Record ed Physically Hurt Never 11/20/2019 Verbally Threaten Not on file 11/20/2019 Sex and Gender Information Value Date Recorded Sex Assigned at Not on file Gender Identity Not on file Sexual Orientation Not on file Plan of Treatment Not on file Care Teams Clerk Telegraph Service Relationship Specialty Start Date End Date Unknown, Provider, PCP - General 02/28/15
--- OUTSIDE RECORDS SUMMARY | 2024-02-02 16:18 | XMS_ITS | Encounter Summary ---
[place] [address] Care Team Providers Care Residential Roofer Name Role Phone Curt Roman Primary Care Provider [phone] Encounter Details Date Type Department Care Team (Late st Contact Info) Description 09/12/2020 Telephone [place] [id number] Carly Hart Social History Tobacco Use Types Packs/Day Years Used Date Smoking Tobacco: Former Smokeless Tobacco: Never Sex and Gender Information Value Date Recorded Sex Assigned at Male 10/29/2020 7:31 AM EDT Gender Identity Not on file Sexual Orientation Straight 10/29/2020 7: 31 AM EDT documented as of this encounter Miscellaneous Notes * Telephone Encounter - Carly Hart - 09/12/2020 1:35 PM EDT Kristopher Canela [id number] Diagnosis/Indication: Diverticulitis Family history of colonic polyps 1. Have you ever had a/an Colonoscopy before? No If yes, did you have any problems with the procedure? No What type of sedation was used: None 2. Do you take any blood thinners or have you been diagnosed with a bleeding disorder that increases your risk of bleeding with procedures? No 3. Do you have a Pacemaker or Defibrillator device? No 4. Are you a diabetic? No 5. Do you have any Allergies to Eggs, Latex or Medications? No 6. Do you take any Oral Iron Supplements (Including multi-vitamins)? Yes (Multivitamin) 7. Do you have a history of three or more abdominal surgeries? No 8. Have you had a problem with sedation or anesthesia? No 9. Do you use a c-pap machine or oxygen tank? Neither 10. Do you take prescription narcotic pain medications, including suboxone or methodone? No 11. Do you have a preference regarding the gender of your provider? No Preference 12. Is there any other information you would like to us to note for the provider and nursing team who will perform your case? No 13. Say to patient: You must have a responsible republican who will drive you to your procedure, stay oncampus for the entire duration of your procedure, and drive you home from your procedure? *Please Verify the height and weight, and adjust if height and/or weight have changed* There is no height or weight on file to calculate BMI. *Delete if not needed* Height: 6' Weight: 290 BMI: 39.3 Age:40 y.o. documented in this encounter Plan of Treatment Not on file documented as of this encounter Visit Diagnoses Not on filedocumented in this encounter Care Teams Residential Roofer Relationship Specialty Start Date End Date Curt Roman PA [address] [place] [address] PCP - General General Internal Medicine 06/18/1709/23 documented as of this encounter
--- OUTSIDE RECORDS SUMMARY | 2024-02-02 16:18 | XMS_ITS | Encounter Summary ---
Author Organization [facility] [place] [address] Care Team Providers Care Director Sanitation Bureau Name Role Phone Curt Roman Primary Care Provider [phone] Reason for Visit * Reason Comments Patch Testing Encounter Details Date Type Department Care Team (Late st Contact Info) Description 03/17/2018 4:30 PM EST Office Visit Dermatology at [place] [address] [place] [address] Barb Tompkins MD [facility] [address] ESTHELA [place] [address] Encounter for allergy testing (Primary Dx); Allergic contact dermatitis, unspecified trigger Social History Tobacco Use Types Packs/Day Years Used Date Smoking Tobacco: Former Smokeless Tobacco: Never Sex and Gender Information Value Date Recorded Sex Assigned at Male 10/29/2020 7:31 AM EDT Gender Identity Not on file Sexual Orientation Straight 10/29/2020 7: 31 AM EDT documented as of this encounter Progress Notes * Barb Tompkins MD - 03/17/2018 4:30 PM EST [facility] - Section of Dermatology Patch Testing Clinic PATCH REMOVAL & 48HR READ - 03/17/2018 Name: Kristopher Canela : 1980 Chief Complaint: Here for 48 hour patch test visit - removal and initial reading ID: Mr. Kristopher Canela is a 37 y.o. established patient to Dermatology and to me. SUBJECTIVE: Mr. Canela is here for 48 hour patch test visit (removal and preliminary reading). Patches stayed on well; he experienced no problems. There is no flare of the original dermatitis today. Patch tests were removed and the locations marked by my nurse. RESULTS AT 48 hour removal (caution, 2 readings are required for final result interpretation) [id number] [facility] STANDARD ALLERGENS Number Allergen 1st Read 2nd Read Comments 1 Benzocaine , 5% pet 6 2 2 mercaptobenzothiazole, 1% pet 6 3 Colophonium (rosin), 20% pet 6 4 Paraphenylenediamine, 1% pet 6 5 Dimethylaminopropylamine (DMAPA), 1% aq 6 6 Fragrance Mix II, 14% pet 6 7 Lanolin alcohol, 50% pet 6 8 Carba mix , 3% pet 6 9 Neomycin sulfate, 20% pet 6 10 Thiuram mix, 1% pet 6 11 Formaldehyde, 1% aq 2+ 12 Ethylenediamine dihydrochloride , 1% pet 6 13 Bisphenol A epoxy resin, 1% pet 6 14 Quaternium 15, 2% pet 2+ 15 0-wumg-nspohhbxjix formaldehyde resin, 1% pet 6 16 Ethylhexyl glycerin, 5% pet 6 17 Black rubber mix, 0.6% pet 6 18 Potassium dichromate, 0.25% pet 6 19 Myroxylon Pereirae Resin [place] of [place], 25% pet 6 20 Nickel sulfate hexahydrate, 2.5% pet 6 21 Diazolidinyl urea, 1.0% pet 2+ 22 DMDM hydantion, 1.0% pet +- Possible spill over from 21 23 Imidazolidinyl urea, 2% pet 6 24 Bacitracin, 20% pet 6 25 Mixed dialkyl thioureas, 1.0% pet 6 26 Methylchloroisothiazolinone/ Methyisothiazolinone, 0.02% pet = 200 ppm 6 27 Paraben mix, 12% pet 6 28 Cinnamic aldehyde, 1.0% pet 6 29 Fragrance mix, 8% pet 6 30 Amidoamine (stearamidopropyl dimethylamine), 0.1% aq 6 31 6-Xvhtq-0-nitropropane-1,3-diol, 0.5% pet 6 32 Sesquiterpene lactone mix, 0.1% pet 6 33 2-Hydroxyethyl methacrylate, 2.0% pet 6 34 Hydroperoxide of linalool, 1% pet 7 Not tested 35 Benzophenone 3 (oxybenzone) or 1-okxhbpv-5-methoxy benzophenone, 10% pet 6 36 Chloroxylenol (4-chloro-3,5-xylenol), 1% pet 6 37 Lauryl glucoside, 3% pet 6 38 Methylisothiazolinone, 0.2% pet aq = 2000 ppm 6 39 Sodium metabisulfite, 1% pet 6 40 Methyldibromoglutaronitrile/ Phenoxyethanol (MDBGN/PE), 2% pet 6 41 Diphenylguanidine, 1% pet 6 42 Tocopherol (DL-alpha tocopherol), 100% 6 43 Iodopropynyl butylcarbamate, 0.5% pet 6 44 Ethyl acrylate, 0.1% pet 6 45 Benzophenone 4 (sulisobenzone), 10% pet 6 46 Tosylamide formaldehyde resin, 10% pet 6 47 Methyl methacrylate, 2% pet 6 48 Rufe (ii) chloride, 1.0% pet 6 49 Tixocortal -21-pivalate, 1.0% pet 6 50 Budesonide, 0.1% pet 6 51 Benzisothiazolinone, 0.10% pet 6 52 Disperse dye mix, 5.6% 6 53 Propolis, 10% pet 6 54 Lidocaine HCL, 15% pet 6 55 Propylene glycol, 100% 6 56 Hydroperoxide of limonene, 0.3% pet 7 Not tested 57 Cocamidopropylbetaine, 1.0% aq 6 58 Formaldehyde, 2% aq 2+ 59 Oleamidopropyl dimethylamine, 0.1% aq 6 60 Ammonium persulfate, 2.5% pet 6 61 Cocamide FADI (Coconut diethanolamide), 0.5% pet 6 62 Compositae mix, 6.0% pet 6 63 Chlorhexidine digluconate, 1% aq 6 64 Melaleuca Alternifolia (tea tree leaf oil) , oxidized 5.0% pet 6 65 Cananga Odorata oil (Ylang ylang oil), 2.0% pet 6 66 Carvone, 5.0% pet 6 67 N-Octylisothiazolinone, 0.025% pet 6 68 Decyl glucoside, 5.0% pet 6 69 Hydroquinone, 1.0% pet 6 70 Mentha piperata (peppermint oil) 2.0% pet 6 *disperse blue-35 1%, disperse yellow-3 1%, disperse orange-1 1%, disperse red-1 1%, disperse red-17 1%, disperse blue-106 0.3%, disperse blue- 124 0.3% Patch test reading morphology codes 1+ = weak, non vesicular, erythema, infiltration, possibly papules 2+ = strong, edematous or vesicular reaction 3+ = extreme, spreading , bullous, ulcerative reaction 4 = macular erythema only, weak, questionable 5 = irritant morphology, not true allergy 6 or no result listed = negative reaction 7 = not tested ASSESSMENT/PLAN: 1. Discussed the above positive allergens in terms of exposure sources, alternative names, and avoidance strategies. 2. Return on Thursday for final patch test reading, discussion of results, and any further recommendations regarding management. > 10 minutes of this 15 minute visit spent in counselling and education. Printed information sheets on positive allergens given and reviewed. Note initiated and routed to physician for review and change by: TOM Thompson I performed the services which were documented by the scribe, and I agree with the accuracy of the documentation in this encounter. Barb Tompkins MD. Barb Tompkins MD Resident in Dermatology [facility] Pager [phone] Staff special educator: Bibi Antoine MD Section of Dermatology [facility] Level of Resident Supervision: Indirect Supervision (The supervising physician is not physically present, but is directly available for assistance in guiding the diagnosis and treatment plan). * Bibi Antoine MD - 03/17/2018 4:30 PM EST I was the supervising physician working with dermatology resident Dr. Lisandro Tompkins in the dermatology clinic during this patient visit. The level of Resident supervision for this patient visit was indirect supervision with direct supervision immediately available. (definition: [facility] Policy Statement on Graduate Medical Education, Supervision of Graduate Medical Trainees) I was immediately available to Dr. Tompkins for questions and discussion regarding this visit. I have reviewed her encounter note details and level of service. BIBI ANTOINE MD Staff Physician documented in this encounter Plan of Treatment Not on file documented as of this encounter Visit Diagnoses Diagnosis Encounter for allergy testing- Primary Diagnostic skin and sensitization tests Allergic contact dermatitis, unspecified trigger documented in this encounter Care Teams Director Sanitation Bureau Relationship Specialty Start Date End Date Curt Roman PA [address] [place] [address] PCP - General General Internal Medicine 06/18/1709/23 documented as of this encounter
--- OUTSIDE RECORDS SUMMARY | 2024-02-02 16:18 | XMS_ITS | Encounter Summary ---
Author Organization [facility] Address [address] [place] [address] Care Team Providers Care Cheese Grader Name Role Phone Unknown, Provider Primary Care Provider [phone] Encounter Details Date Type Department Care Team (Late st Contact Info) Description 05/31/2020 Lab Requisition [facility] Pathology & Laboratory Medicine - [facility] [address] [place] [address] Outr Resulting Lab, Provider Social History Tobacco Use Types Packs/Day Years Used Date Smoking Tobacco: Never Assessed Interpersonal Safety Answer Date Record ed Physically Hurt Never 11/20/2019 Verbally Threaten Not on file 11/20/2019 Sex and Gender Information Value Date Recorded Sex Assigned at Not on file Gender Identity Not on file Sexual Orientation Not on file documented as of this encounter Plan of Treatment Not on file documented as of this encounter Procedures Procedure Name Priority Date/Time Associated Diagnosis Comments ACUTE HEPATITIS PROFILE Routine 05/30/2020 15:40 EST documented in this encounter Results * ACUTE HEPATITIS PROFILE (05/30/2020 15:40 EST) Hep B Surface Ag Negative Negative 06/01/2020 11:[address] [facility] Hep C Antibody Negative Negative 06/01/2020 11:42 [facility] Hepatitis A Antibody, IgM Negative Negative 06/01/2020 11:42 [facility] Comment:The results of this assay can be falsely lowered due to the consumption of Biotin. Hepatitis B Core Ab, Total Negative Negative 06/01/2020 11:42 [facility] Blood VENOUS BLOOD / Unknown 05/30/2020 15:40 EST 05/31/2020 20:32 EST Provider Outr Resulting Lab CHEMISTRY & BLOOD GAS ORDERABLES [facility] [address] [place] [address] documented in this encounter Visit Diagnoses Not on filedocumented in this encounter Care Teams Cheese Grader Relationship Specialty Start Date End Date Unknown, Provider, PCP - General 02/28/15 documented as of this encounter
--- OUTSIDE RECORDS SUMMARY | 2024-02-02 16:18 | XMS_ITS | Clinical Summary ---
Author Organization Formerly [facility] Address [facility] [place] [address] Care Team Providers Care Flexographic Press Operator Name Role Phone Cherelle Sauceda Primary Care Provider [phone]- [phone] Allergies Active Allergy Reactions Criticality Noted Date Comments Lisinopril Other (See Comments) Medium 10/09/2020 Dry cough Medications Medication Sig Dispensed Refills Start Date End Date Status clobetasol (TEMOVATE) 0.05 % Ointment apply to RIGHT PHILLIPS, ABDOMEN, BOTH SHOULDERS twice a day UNTIL RASH CLEARS 0 05/13/2017 Active triamcinolone (KENALOG) 0.1 % OintmentIndications:A topic dermatitis, unspecified type Apply twice daily to trunk and extremities for two weeks, take a week off. Repeat cycle as needed. 454 g 10/08/2017 Active tacrolimus (PROTOPIC) 0.1 % OintmentIndications:E czema, unspecified type Apply topically twice daily to all affected areas 100 g 3 01/15/2018 Active augmented betamethasone dipropionate (DIPROLENE-AF) 0.05 % OintmentIndications:E czema, unspecified type During flare-ups,apply to rashes twice daily up to two weeks.. Spare the groin, armpits and face. 50 g 1 01/15/2018 Active losartan (Cozaar) 50 mg Tablet Take 50 mg by mouth daily. Active aspirin EC 81 mg Tablet, Delayed Release (E.C.) Take 81 mg by mouth daily. Active multivitamin (THERAGRAN) Tablet Take 1 tablet by mouth daily. Active [id number]-fish oil 300-1,000 mg Capsule Take by mouth. 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 Eczema 06/18/2017 Resolved Problems Problem Noted Date Diagnosed Date Resolved Date Fatty liver 10/29/2020 10/29/2020 Social History Tobacco Use Types Packs/Day Years Used Date Smoking Tobacco: Former Cigarettes Q uit: 10/09/2013 Smokeless Tobacco: Never Sex and Gender Information Value Date Recorded Sex Assigned at Male 10/29/2020 7:31 AM EDT Gender Identity Not on file Sexual Orientation Straight 10/29/2020 7: 31 AM EDT Last Filed Vital Signs Vital Sign Reading Time Taken Comments Blood Pressure 129/80 10/09/2020 2:10 PM EDT Pulse 79 10/09/2020 1:20 PM EDT Temperature 36.3 ??C (97.3 ??F) 10/09/2020 11:53 AM E DT Respiratory Rate 16 10/09/2020 2:10 PM EDT Oxygen Saturation 93% 10/09/2020 2:30 PM EDT Inhaled Oxygen Concentration - - Weight 131.5 kg (290 lb) 10/09/2020 11:53 AM EDT Height 182.9 cm (6') 10/09/2020 11:53 AM EDT Body Mass Index 39.33 10/09/2020 11:53 AM EDT Plan of Treatment Health Maintenance Due Date Last Done Comments HIV screen 1998 Hepatitis C Screening 1998 Lipid Screening 1998 Hepatitis B vaccine (0-59 yrs) (1) 08/31/1999 Tetanus/Diphtheria/Pertussis Vaccines (1 - Tdap) 08/30 Pre-DM monitoring (HgbA1C or FBG) 2020 Covid-19 Vaccine (1 - 2022-24 season) 2023 Influenza (Flu) vaccine (1 o f 1 - Influenza standard series) 12/20/2023 Advance Directives Documents on File Type Date Recorded Patient Assistant Case Manager Expl anation Personal Assistant Case Manager 09/25/2020 6:16 PM samantha canela Care Teams Flexographic Press Operator Relationship Specialty Start Date End Date Cherelle Sauceda PA [address] [place], [place] [id number] PCP - General Family Medicine 09/24/20
--- OUTSIDE RECORDS SUMMARY | 2024-02-02 16:18 | XMS_ITS | Encounter Summary ---
[place] [address] Care Team Providers Care Manager Outpatient Name Role Phone Cherelle Sauceda Primary Care Provider [phone]- [phone] Reason for Visit * Reason Onset Date Comments Reminder Appointment 10/29/2020 Encounter Details Date Type Department Care Team (Late st Contact Info) Description 10/29/2020 [place] [address] Corina Mckenzie CCMA Reminder Appointment Social History Tobacco Use Types Packs/Day Years Used Date Smoking Tobacco: Former Cigarettes Q uit: 10/09/2013 Smokeless Tobacco: Never Sex and Gender Information Value Date Recorded Sex Assigned at Male 10/29/2020 7:31 AM EDT Gender Identity Not on file Sexual Orientation Straight 10/29/2020 7: 31 AM EDT documented as of this encounter Miscellaneous Notes * Telephone Encounter - Corina Mckenzie CCMA - 10/29/2020 10:33 AM EDT Called patient to review medications and allergies for their upcoming gastroenterology Type of Appointment: Telehealth appointment. Reach Patient during MA Check: Yes Notes for the provider: Notes for the nurse: documented in this encounter Plan of Treatment Not on file documented as of this encounter Visit Diagnoses Not on filedocumented in this encounter Care Teams Manager Outpatient Relationship Specialty Start Date End Date Cherelle Sauceda PA [address] [place] [address] PCP - General Family Medicine 09/24/20 documented as of this encounter
--- OUTSIDE RECORDS SUMMARY | 2024-02-02 16:18 | XMS_ITS | Clinical Summary ---
Author Organization [facility] Address [address] [place] [address] Care Team Providers Care Access Spec Name Role Phone Unknown, Provider Primary Care Provider [phone] Social History Tobacco Use Types Packs/Day Years Used Date Smoking Tobacco: Never Assessed Interpersonal Safety Answer Date Record ed Physically Hurt Never 11/20/2019 Verbally Threaten Not on file 11/20/2019 Sex and Gender Information Value Date Recorded Sex Assigned at Not on file Gender Identity Not on file Sexual Orientation Not on file Plan of Treatment Health Maintenance Due Date Last Done Comments Hepatitis C Screen 1980 Hepatitis B Vaccine (1 of 3 - 19+ 3-dose series) 08/30 COVID-19 Vaccine (24 season) 2022 Care Teams Access Spec Relationship Specialty Start Date End Date Unknown, Provider, PCP - General 02/28/15
--- OUTSIDE RECORDS SUMMARY | 2024-02-02 16:18 | XMS_ITS | Encounter Summary ---
Author Organization [facility] [place] [address] Care Team Providers Care Industrial Management Teacher Name Role Phone Curt Roman Primary Care Provider [phone] Encounter Details Date Type Department Care Team (Late st Contact Info) Description 03/19/2018 3:30 PM EST Office Visit Dermatology at [facility] [address] [place] [address] Barb Tompkins MD [facility] [address] [place] [address] Encounter for allergy testing; Allergic contact dermatitis due to cosmetics Social History Tobacco Use Types Packs/Day Years Used Date Smoking Tobacco: Former Smokeless Tobacco: Never Sex and Gender Information Value Date Recorded Sex Assigned at Male 10/29/2020 7:31 AM EDT Gender Identity Not on file Sexual Orientation Straight 10/29/2020 7: 31 AM EDT documented as of this encounter Progress Notes * Barb Tompkins MD - 03/19/2018 3:30 PM EST Images from the original note were not included. DERMATOLOGY - ESTABLISHED PATIENT NOTE Date of service: 03/21/2018 Kristopher M Hilton : 1980, 37 y.o. CC: FINAL 96 hour patch test final reading (second, delayed reading) and discussion of results and plan. Tested to: NACDG series (70 allergens) SUBJECTIVE: No problems since visit on Thursday for the second reading. Itchy! RESULTS: NACDG STANDARD ALLERGENS: Number Allergen 1st Read 2nd Read Comments 1 Benzocaine , 5% pet 6 6 NEG 2 2 mercaptobenzothiazole, 1% pet 6 6 NEG 3 Colophonium (rosin), 20% pet 6 6 NEG 4 Paraphenylenediamine, 1% pet 6 1+ 5 Dimethylaminopropylamine (DMAPA), 1% aq 6 6 NEG 6 Fragrance Mix II, 14% pet 6 6 NEG 7 Lanolin alcohol, 50% pet 6 6 NEG 8 Carba mix , 3% pet 6 6 NEG 9 Neomycin sulfate, 20% pet 6 6 NEG 10 Thiuram mix, 1% pet 6 6 NEG 11 Formaldehyde, 1% aq 2+ 2+ 12 Ethylenediamine dihydrochloride , 1% pet 6 6 NEG 13 Bisphenol A epoxy resin, 1% pet 6 6 NEG 14 Quaternium 15, 2% pet 2+ 2+ 15 9-tkux-pnrwnoukmgm formaldehyde resin, 1% pet 6 6 NEG 16 Ethylhexyl glycerin, 5% pet 6 6 NEG 17 Black rubber mix, 0.6% pet 6 6 NEG 18 Potassium dichromate, 0.25% pet 6 6 NEG 19 Myroxylon Pereirae Resin [facility], 25% pet 6 6 NEG 20 Nickel sulfate hexahydrate, 2.5% pet 6 6 NEG 21 Diazolidinyl urea, 1.0% pet 2+ 2+ 22 DMDM hydantion, 1.0% pet 6 2+ 23 Imidazolidinyl urea, 2% pet 6 6 Angry back? 24 Bacitracin, 20% pet 6 6 Angry back? 25 Mixed dialkyl thioureas, 1.0% pet 6 6 NEG 26 Methylchloroisothiazolinone/ Methyisothiazolinone, 0.02% pet = 200 ppm 6 6 NEG 27 Paraben mix, 12% pet 6 6 NEG 28 Cinnamic aldehyde, 1.0% pet 6 6 NEG 29 Fragrance mix, 8% pet 6 6 NEG 30 Amidoamine (stearamidopropyl dimethylamine), 0.1% aq 6 6 NEG 31 9-Kmxfs-5-nitropropane-1,3-diol, 0.5% pet 6 6 NEG 32 Sesquiterpene lactone mix, 0.1% pet 6 6 NEG 33 2-Hydroxyethyl methacrylate, 2.0% pet 6 6 NEG 34 Hydroperoxide of linalool, 1% pet 7 7 Not tested 35 Benzophenone 3 (oxybenzone) or 5-cxuuroz-4-methoxy benzophenone, 10% pet 6 6 NEG 36 Chloroxylenol (4-chloro-3,5-xylenol), 1% pet 6 6 NEG 37 Lauryl glucoside, 3% pet 6 6 NEG 38 Methylisothiazolinone, 0.2% pet aq = 2000 ppm 6 6 NEG 39 Sodium metabisulfite, 1% pet 6 6 NEG 40 Methyldibromoglutaronitrile/ Phenoxyethanol (MDBGN/PE), 2% pet 6 6 NEG 41 Diphenylguanidine, 1% pet 6 6 NEG 42 Tocopherol (DL-alpha tocopherol), 100% 6 6 NEG 43 Iodopropynyl butylcarbamate, 0.5% pet 6 6 NEG 44 Ethyl acrylate, 0.1% pet 6 6 NEG 45 Benzophenone 4 (sulisobenzone), 10% pet 6 2+ 46 Tosylamide formaldehyde resin, 10% pet 6 6 NEG 47 Methyl methacrylate, 2% pet 6 6 NEG 48 [place] (ii) chloride, 1.0% pet 6 6 NEG 49 Tixocortal -21-pivalate, 1.0% pet 6 6 NEG 50 Budesonide, 0.1% pet 6 6 NEG 51 Benzisothiazolinone, 0.10% pet 6 6 NEG 52 Disperse dye mix, 5.6% 6 6 NEG 53 Propolis, 10% pet 6 6 NEG 54 Lidocaine HCL, 15% pet 6 6 NEG 55 Propylene glycol, 100% 6 6 NEG 56 Hydroperoxide of limonene, 0.3% pet 7 7 Not tested 57 Cocamidopropylbetaine, 1.0% aq 6 6 NEG 58 Formaldehyde, 2% aq 2+ 2+ 59 Oleamidopropyl dimethylamine, 0.1% aq 6 6 NEG 60 Ammonium persulfate, 2.5% pet 6 6 NEG 61 Cocamide FADI (Coconut diethanolamide), 0.5% pet 6 6 NEG 62 Compositae mix, 6.0% pet 6 6 NEG 63 Chlorhexidine digluconate, 1% aq 6 6 NEG 64 Melaleuca Alternifolia (tea tree leaf oil) , oxidized 5.0% pet 6 6 NEG 65 [place] Odorata oil (Ylang ylang oil), 2.0% pet 6 6 NEG 66 Carvone, 5.0% pet 6 6 NEG 67 N-Octylisothiazolinone, 0.025% pet 6 6 NEG 68 Decyl glucoside, 5.0% pet 6 6 NEG 69 Hydroquinone, 1.0% pet 6 6 NEG 70 Mentha piperata (peppermint oil) 2.0% pet 6 6 NEG Results of testing (definitions): ?? Strongest reaction (3+) Extreme (spreading, bullous, ulcerative) ?? Moderate reaction (2+) (Edematous or vesicular) ?? Weak reaction (1+) Non-vesicular ?? Doubtful reaction (4) Macular erythema only, questionable or doubtful ?? Irritant reaction (5) Irritant reaction, this is not a true allergic reaction but an irritation from the testing chemical. If no result recorded, the result is negative ASSESSMENT/Summary: The patient has numerous positives to the following allergens. Around Diazolidinyl urea, there werenumerous reactions that appeared to be spill-overs. Although there are edematous plaques on site 23(imidazolindinyl urea) and 24 (bacitracin), these did not confine to the allergen wells. I suspect these reacted as a result of an angry back. Allergen 1st Read 2nd Read Relevance Paraphenylenediamine, 1% pet 6 1+ Possible Formaldehyde, 1% aq 2+ 2+ Probable Quaternium 15, 2% pet 2+ 2+ Definite Diazolidinyl urea, 1.0% pet 2+ 2+ Probable DMDM hydantion, 1.0% pet 6 2+ Probable Benzophenone 4 (sulisobenzone), 10% pet 6 2+ Probable Formaldehyde, 2% aq 2+ 2+ Probable PLAN: 1. Allergen avoidance discussion ?? The allergies identified by testing include those listed above. An information sheet about each positive patch test was given and I reviewed this information in-depth. ?? For each positive allergen, the information sheets reviewed include information about the allergen name, synonyms, potential cross-reacting chemicals, possible exposure sources, and potential alternative products or items if needed. ?? Relevance of each reaction was explored in-depth in order to try and understand whether the allergic chemical may have caused, aggravated, or contributed in some way to the patient's skin problem in the present or past. ?? Shortness of breath, hives, etc., are not expected with this type of allergy as these patch testresults indicate a delayed, type IV allergic skin reaction, NOT acute type 1 allergic reactions. ?? 2. Review of CAMP list ?? [place] CAMP list of a product list which does not have any of thepatient's above allergens in the product was generated for the patient. The patient was educated onhow to use the CAMP list. We will email the patient their unique identifier code and a CAMP document which will allow them to get their CAMP list online and updates. ?? CAMP GUANACO information given to the patient and patient taught how to use this GUANACO to find products that are safe to use. ?? The following access codes were sent via [employer] ?? ACCESS CODE #1: [id number] ACCESS CODE #2: [id number] ?? 3. Recommendations/Counseling: ?? Avoidance of allergens as discussed above. Reference CAMP list to ensure products that touch your skin are safe. ?? Follow STRICT sensitive skin care. Use recommended products only. Handouts reviewed and given topt. ?? Topical steroids previous prescribed can be used if there is an eczematous flare. This is probably from an allergen! ?? 4. Follow-up: ?? 3-4 months, appointment made upon exiting. I, Evette Alicea LPN, have performed the documentation for this encounter in the presence of and acting as a scribe for Barb Tompkins MD. I performed the services which were documented by the scribe, and I agree with the accuracy of the documentation in this encounter. Barb Tompkins MD. Barb Tompkins MD Resident in Dermatology [facility] Pager [phone] Staff honey grader and blender: Marjorie Stanley MD Section of Dermatology [facility] Level of Resident Supervision: Direct Supervision (The supervising physician is physically present with the resident and patient). E * Marjorie Stanley MD - 03/19/2018 3:30 PM EST I directly supervised Dr. Barb Tompkins during this office visit. Dr. Tompkins presented the history and physical exam to me. I then saw and examined this patient with Dr. Tompkins. We reviewed the history and pertinent details and I confirmed the physical findings. I agree with the details of the history and physical exam as documented in Dr. Tompkins's note. Marjorie Stanley MD Staff Physician documented in this encounter Plan of Treatment Not on file documented as of this encounter Visit Diagnoses Diagnosis Encounter for allergy testing Diagnostic skin and sensitization tests Allergic contact dermatitis due to cosmetics Dermatitis due to cosmetics documented in this encounter Care Teams Industrial Management Teacher Relationship Specialty Start Date End Date Curt Roman PA [address] [place] [address] PCP - General General Internal Medicine 06/18/1709/23 documented as of this encounter
--- OUTSIDE RECORDS SUMMARY | 2024-02-02 16:18 | XMS_ITS | Encounter Summary ---
Author Organization [facility] [place] [address] Care Team Providers Care Restaurant Hourly Manager Name Role Phone Cherelle Sauceda Primary Care Provider [phone] Encounter Details Date Type Department Care Team (Late st Contact Info) Description 10/09/2020 1:00 PM EDT - 10/09/2020 1:45 PM EDT Surgery [place] [address] Jalil Qureshi MD [facility] [place] [address] COLONOSCOPY, POLYPECTOMY, REMOVAL LESION BY SNARE (WRVU 4.57) Social History Tobacco Use Types Packs/Day Years Used Date Smoking Tobacco: Former Cigarettes Q uit: 10/09/2013 Smokeless Tobacco: Never Sex and Gender Information Value Date Recorded Sex Assigned at Male 10/29/2020 7:31 AM EDT Gender Identity Not on file Sexual Orientation Straight 10/29/2020 7: 31 AM EDT documented as of this encounter Last Filed Vital Signs Vital Sign Reading Time Taken Comments Blood Pressure 139/79 10/09/2020 1:40 PM EDT Pulse 79 10/09/2020 1:20 PM EDT Temperature 36.3 ??C (97.3 ??F) 10/09/2020 11:53 AM E DT Respiratory Rate 16 10/09/2020 1:40 PM EDT Oxygen Saturation 94% 10/09/2020 1:40 PM EDT Inhaled Oxygen Concentration - - Weight 131.5 kg (290 lb) 10/09/2020 11:53 AM EDT Height 182.9 cm (6') 10/09/2020 11:53 AM EDT Body Mass Index 39.33 10/09/2020 11:53 AM EDT documented in this encounter Discharge Instructions * Discharge Instructions* Will Peralta RN - 10/09/2020 2:37 PM EDT Colonoscopy: What to Expect at Home Your Recovery Your doctor will talk to you about when you will need your next colonoscopy. Your doctor can help you decide how often you need to be checked. This will depend on the results of your test and your risk for colorectal cancer. After the test, you may be bloated or have gas pains. You may need to pass gas. If a biopsy was done or a polyp was removed, you may have streaks of blood in your stool (feces) for a few days. Problems such as heavy rectal bleeding may not occur until several weeks after the test. This isn't common. But it can happen after polyps are removed. This care sheet gives you a general idea about how long it will take for you to recover. But each person recovers at a different pace. Follow the steps below to get better as quickly as possible. How can you care for yourself at home? Activity Rest when you feel tired. ?? You can do your normal activities when it feels okay to do so. Diet ?? Follow your doctor's directions for eating. ?? Unless your doctor has told you not to, drink plenty of fluids. This helps to replace the fluidsthat were lost during the colon prep. ?? Do not drink alcohol. Medicines ?? Your doctor will tell you if and when you can restart your medicines. He or she will also give you instructions about taking any new medicines. ?? If you take blood thinners, such as warfarin (Coumadin), clopidogrel (Plavix), or aspirin, be sure to talk to your doctor. He or she will tell you if and when to start taking those medicines again. Make sure that you understand exactly what your doctor wants you to do. ?? If polyps were removed or a biopsy was done during the test, your doctor may tell you not to take aspirin or other anti-inflammatory medicines for a few days. These include ibuprofen (Advil, Motrin) and naproxen (Aleve). Other instructions ?? For your safety, do not drive or operate machinery until the medicine wears off and you can think clearly. Your doctor may tell you not to drive or operate machinery until the day after your test. ?? Do not sign legal documents or make major decisions until the medicine wears off and you can think clearly. The anesthesia can make it hard for you to fully understand what you are agreeing to. Additional Information for Sedation Patients For patients who received sedation: ?? You may have received medications before and/or during your procedure which effects your judgement and reaction time. ?? Do not drive, operate machinery, drink alcoholic beverages or make important decisions for 24 hours. ?? Be careful on stairs as you may be unsteady on your feet. ?? You may eat a regular diet as tolerated. ?? Do not smoke if you are alone. ?? IV site: Slight redness or tenderness is normal, you can use a warm compress if you would like. If tenderness and/or redness increase or if foul drainage occurs, please contact your Doctor. Please call [phone] before 8pm Mon-Fri with problems, questions or concerns. If you call after 8pm or on weekends, call the Hospital at [phone] and ask to speak to the Photogrammetric Engineer transportation engineering technician and the frame gate mortiser operator will contact that person for you. When should you call for help? Call 617 anytime you think you may need emergency care. For example, call if: ?? You passed out (lost consciousness). ?? You pass maroon or bloody stools. ?? You have trouble breathing. Call your doctor now or seek immediate medical care if: ?? You have pain that does not get better after you take pain medicine. ?? You are sick to your stomach or cannot drink fluids. ?? You have new or worse belly pain. ?? You have blood in your stools. ?? You have a fever. ?? You cannot pass stools or gas. Watch closely for changes in your health, and be sure to contact your doctor if you have any problems. Where can you learn more? [facility] View your After Visit Summary and more online at [email or web address] If you would like to provide feedback about your hospital experience, please call the Office of Patient and Family Relations at . If you have received this After Visit Summary in error, please immediately return it in person to the department, or notify the D- Privacy Office by calling toll free at between the hours of 8AM and 5PM to arrange for our retrieval of the documents at no cost to you. Content Version: 12.2 ?? [id number] [employer]. Care instructions adapted under license by [facility]. If you have questions about a medical condition or this instruction, always ask your healthcare professional. [employer] disclaims any warranty or liability for your use of this information. documented in this encounter Medications at Time of Discharge Medication Sig Dispensed Refills Start Date End Date losartan (Cozaar) 50 mg Tablet Take 50 mg by mouth daily. aspirin EC 81 mg Tablet, Delayed Release (E.C.) Take 81 mg by mouth daily. multivitamin (THERAGRAN) Tablet Take 1 tablet by mouth daily. tacrolimus (PROTOPIC) 0.1 % OintmentIndications:Ecz yvette, unspecified type Apply topically twice daily to all affected areas 100 g 3 01/15/2018 augmented betamethasone dipropionate (DIPROLENE-AF) 0.05 % OintmentIndications:Ecz yvette, unspecified type During flare-ups,apply to rashes twice daily up to two weeks.. Spare the groin, armpits and face. 50 g 1 01/15/2018 triamcinolone (KENALOG) 0.1 % OintmentIndications:Cedric pic dermatitis, unspecified type Apply twice daily to trunk and extremities for two weeks, take a week off. Repeat cycle as needed. 454 g 10/08/2017 clobetasol (TEMOVATE) 0.05 % Ointment apply to RIGHT PHILLIPS, ABDOMEN, BOTH SHOULDERS twice a day UNTIL RASH CLEARS 0 05/13/2017 predniSONE (DELTASONE) 20 mg TabletIndications:Atopi c dermatitis, unspecified type 60 mg x 5 days 40 mg x 5 days 20 mg x 5 days 30 tablet 10/08/2017 10/29/2020 lisinopril (PRINIVIL;ZESTRIL) 10 mg Tablet 05/29/2017 10/29/2020 documented as of this encounter H&P Notes * Jalil Qureshi MD - 10/09/2020 12:46 PM EDT Procedure: colonoscopy Indication: diverticulitis, family history of colon polyps History of Present Illness: Kristopher Canela is a 40 y.o. man here for colonoscopy to follow up an episode of possible diverticulitis - he also describes a family history of colon polyps, but does now know more details as to whether they were high risk polyps or not Patient Active Problem List Diagnosis Code ??? 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 Eczema L30.9 Medications: Reviewed in EDH Allergies Allergen Reactions ??? Lisinopril Other (See Comments) Dry cough Social History/Family History: Reviewed in EDH. No changes Exam: Patient Vitals for the past 24 hrs: Temp Pulse Resp BP SpO2 O2 Device 10/09/20 1153 36.3 ??C (97.3 ??F) 88 18 (!) 152/97 98 % RA Axox3, nad Anicteric, MMM CTAB RRR, no m/r/g abd soft nt nd +bs Assessment and Plan: Proceed with Colonoscopy: ASA Grade: ASA 2 - Patient with mild systemic disease with no functional limitations Mallampati score:II (soft palate, uvula, fauces visible) Sedation plan: Moderate Conscious sedation Risks and benefits of the procedure were discussed with the patient. Consent has been signed. Jalil Qureshi MD documented in this encounter Miscellaneous Notes * Op Note - Jalil Qureshi MD - 10/09/2020 1:01 PM EDT DH Operative Note Patient Name: Kristopher Canela : [id number] MR#: [id number] Case Date: 10/09/2020 Surgeon: Surgeon(s) and Role: * Jalil Qureshi MD - Primary Procedure(s): COLONOSCOPY, POLYPECTOMY, REMOVAL LESION BY SNARE (WRVU 4.67) Please see Provation report for details. documented in this encounter Plan of Treatment Not on file documented as of this encounter Procedures Procedure Name Priority Date/Time Associated Diagnosis Comments SURGICAL PATHOLOGY REPORT Routine 10/09/2020 1:22 PM EDT SPECIMEN TO PATHOLOGY Routine 10/09/2020 1:22 PM EDT SPECIMEN TO PATHOLOGY Routine 10/09/2020 1:22 PM EDT Colonoscopy, Juan Arellano ([id number]) 10/09/2020 12:37 PM EDT Diverticulitis Family history of colonic polyps COLONOSCOPY Routine 10/09/2020 12:24 PM EDT documented in this encounter Results * Surgical Pathology Report (10/09/2020 1:22 PM EDT) Final Diagnosis [id number] ? Location: 4T; EA06; A The signing pathologist has (i) examined the relevant preparation(s) for the specimen(s) and (ii) rendered or confirmed the diagnosis(es). . ?Surgical Pathology DIAGNOSIS A - Sigmoid colon polyp, excision: Tubular adenoma. B - Rectum polyp, excision: Tubular adenoma. Electronically signed by: ?Petty Jones MD Verified: ??10/16/2020 20:19 ??Pathologist Performed at: ??-[facility] Dept. of Pathology, [place], [place] SPECIMEN(S) SUBMITTED A - Sigmoid colon polyp, excision (1) B - Rectum polyp, excision (1) CLINICAL INFORMATION Diverticulitis, family history of colon polyps SPECIMEN PROCESSING A - Labeled/Fixativ e: Sigmoid colon polyp, formalin. Quantity/Size: Single, 0.5 cm. Tissue Description: Soft, crystal-pink, polypoid tissue. Sections/Proces sing: Inked, bisected and entirely submitted in 1 cassette labeled A1. B - Labeled/Fixativ e: Rectum polyp, formalin. Quantity/Size: Single, 0.5 cm. Tissue Description: Soft, crystal-pink, polypoid tissue. Sections/Proces sing: Inked, bisected and entirely submitted in 1 cassette labeled B1. ??ajw 10/16/2020 8:19 PM EDT [facility] GI Biopsy 10/09/2020 1:22 PM EDT 10/09/2020 1:22 PM EDT GI Biopsy 10/09/2020 1:22 PM EDT 10/09/2020 1:22 PM EDT Jalil Qureshi MD PATHOLOGY/CYTOLOGY O [place] Performing Organization Address [facility] Co de Phone Number [facility] [place] [address] * Specimen to Pathology (10/09/2020 1:22 PM EDT) AP Specimen 10/09/2020 1:22 PM EDT 10/09/2020 1:22 PM EDT Narrative [facility] - 10/09/2020 1:22 PM EDT Specimen requisition ordered. ??Separate Pathology report to follow Jalil Qureshi MD PATHOLOGY/CYTOLOGY O [place] Performing Organization Address [facility]/ZIP Co de Phone Number [facility] [place] [address] * Specimen to Pathology (10/09/2020 1:22 PM EDT) AP Specimen 10/09/2020 1:22 PM EDT 10/09/2020 1:22 PM EDT Narrative [facility] - 10/09/2020 1:22 PM EDT Specimen requisition ordered. ??Separate Pathology report to follow Jalil Qureshi MD PATHOLOGY/CYTOLOGY O [place] Performing Organization Address [facility] Co de Phone Number [facility] [address] * COLONOSCOPY (10/09/2020 12:24 PM EDT) COLONOSCOPY [facility] ___ Procedure Date: 10/09/2020 12:24 PM ? Patient Name: Kristopher Canela ? Date of : 1980 ? Age: 40 ? Order #: [id number] ? Instrument Name: [id number] ? ___ Procedure: ? Colonoscopy Indications: ? Follow-up of diverticulitis Providers: ? Nik Alcantara ? Cherry Almendarez Referring MD: ?MCKENNA Meier Medicines: ? Midazolam 5 mg IV, Fentanyl 250 ? micrograms IV, Diphenhydramine 25 mg ? IV Complications: ? No immediate complications. ___ Procedure: ? Pre-Anesthesia Assessment: ? - Prior to the procedure, a History ? and Physical was performed, and ? patient medications and allergies ? were reviewed. The patient is ? competent. The risks and benefits of ? the procedure and the sedation ? options and risks were discussed with ? the patient. All questions were ? answered and informed consent was ? obtained. Patient identification and ? proposed procedure were verified by ? the physician in the pre-procedure ? area. Mental Status Examination: ? alert and oriented. Airway ? Examination: normal oropharyngeal ? airway and neck mobility. Respiratory ? Examination: clear to auscultation. ? CV Examination: normal. Prophylactic ? Antibiotics: The patient does not ? require prophylactic antibiotics. ? Prior Anticoagulants: The patient has ? taken no previous anticoagulant or ? antiplatelet agents. ASA Grade ? Assessment: II - A patient with mild ? systemic disease. After reviewing the ? risks and benefits, the patient was ? deemed in satisfactory condition to ? undergo the procedure. The anesthesia ? plan was to use moderate sedation / ? analgesia (conscious sedation). ? Immediately prior to administration ? of medications, the patient was ? re-assessed for adequacy to receive ? sedatives. The heart rate, ? respiratory rate, oxygen saturations, ? blood pressure, adequacy of pulmonary ? ventilation, and response to care ? were monitored throughout the ? procedure. The physical status of the ? patient was re-assessed after the ? procedure. ? The procedure, indications, benefits, ? risks and alternatives were explained ? to the patient. Specifically ? discussed were potential ? complications including, but not ? limited to, bleeding, perforation, ? infection, missing a cancer, and ? adverse medication reactions. The ? patient was placed in the left ? lateral decubitus position, and a ? digital rectal exam was performed. ? The Colonoscope was inserted in the ? anus and under direct visualization, ? advanced to the terminal ileum. ? Careful inspection was made as the ? colonoscope was withdrawn. The ? patient tolerated the procedure well. ? The quality of the bowel preparation ? was good. ? Findings: ? The terminal ileum appeared normal. ? A 5 mm polyp was found in the sigmoid colon. The ? polyp was sessile. The polyp was removed with a cold ? snare. Resection and retrieval were complete. ? A 5 mm polyp was found in the rectum. The polyp was ? sessile. The polyp was removed with a cold snare. ? Resection and retrieval were complete. ? Many small and large-mouthed diverticula were found ? in the entire colon. ? Patchy mildly erythematous mucosa was found in the ? sigmoid colon associated with diverticula. ? The retroflexed view of the distal rectum and anal ? verge was normal and showed no anal or rectal ? abnormalities. ? Moderate Sedation: ? Moderate (conscious) sedation was administered by the ? endoscopy nurse and supervised by the endoscopist. ? The following parameters were monitored: oxygen ? saturation, heart rate, blood pressure, and response ? to care. Impression: ?- The examined portion of the ileum ? was normal. ? - One 5 mm polyp in the sigmoid ? colon, removed with a cold snare. ? Resected and retrieved. ? - One 5 mm polyp in the rectum, ? removed with a cold snare. Resected ? and retrieved. ? - Diverticulosis in the entire ? examined colon. ? - Patchy mild erythema in the sigmoid ? colon associated with diverticula. ? - The distal rectum and anal verge ? are normal on retroflexion view. Recommendation: ?- Discharge patient to home. ? - Resume previous diet. ? - Await pathology results. ? - Repeat colonoscopy in 5-10 years ? for surveillance based on pathology ? results. ? Attending Participation: ? I personally performed the entire procedure. ? Jalil Niels Qureshi, 10/09/2020 1:22:14 PM Number of Addenda: 0 Note Initiated On: 10/09/2020 12:24 PM PROVATION 10/09/2020 12:2 4 PM EDT Unknown GENERAL SURGICAL ORD ERABLES PROVATION documented in this encounter Visit Diagnoses Not on filedocumented in this encounter Administered Medications Inactive Administered Medications - up to 3 most recent administrations Medication Order MAR Action Action Date Dose Rate Site diphenhydrAMINE (Benadryl) (50 mg/mL) injection ONCE PRN, Starting on Thu10/09/20 at 1301, Until Thu10/09/20 at 1703, Intra-Operative (Intra-Procedure), Routine Given 10/09/2020 1:01 PM EDT 25 mg fentaNYL (pf) (50 mcg/mL) multi-dose injection ONCE PRN, Starting on 10/09/20 at 1250, Until 10/09/20 at 1703, Intra-Operative (Intra-Procedure), Routine Given 10/09/2020 1:01 PM EDT 50 mcg Given 10/09/2020 12:56 PM EDT 50 mcg Given 10/09/2020 12:53 PM EDT 50 mcg lactated ringers infusion 100 mL/hr, Intravenous, CONTINUOUS, Starting on 10/09/20 at 1215, Until Tu10/09/20 at 1437, Endoscopy (Day of Procedure) New Bag 10/09/2020 12:15 PM EDT 100 mL/hr 100 mL/hr midazolam (pf) (Versed) (1 mg/mL) multi-dose injection ONCE PRN, Starting on e 10/09/20 at 1250, Until Thu10/09/20 at 1703, Intra-Operative (Intra-Procedure), Routine Given 10/09/2020 1:01 PM EDT 1 mg Given 10/09/2020 12:56 PM EDT 1 mg Given 10/09/2020 12:53 PM EDT 1 mg documented in this encounter Active and Recently Administered Medications Times are shown in EDT. Continuous Medication Order 10/07/2020 10/08/2020 10/09/2020 lactated ringers infusion (CANCELED) 100 mL/hr, Intravenous, CONTINUOUS, Starting on Thu10/09/20 at 1215, Until Thu10/09/20 at 1437, Endoscopy (Day of Procedure) 1215 (New Bag - Prov ider: Gladys Ruth RN) PRN Medication Order 10/07/2020 10/08/2020 10/09/2020 diphenhydrAMINE (Benadryl) (50 mg/mL) injection (CANCELED) ONCE PRN, Starting on 10/09/20 at 1301, Until 10/09/20 at 1703, Intra-Operative (Intra-Procedure), Routine 1301 (Given - Provid er: Nik Almendarez RN) fentaNYL (pf) (50 mcg/mL) multi-dose injection (CANCELED) ONCE PRN, Starting on Thu10/09/20 at 1250, Until Thu10/09/20 at 1703, Intra-Operative (Intra-Procedure), Routine 1247 (Given - Provid er: Nik Almendarez RN)1250 (Given - Provider: Nik Almendarez RN)1253 (Given - Provider: Nik Almendarez RN)1256 (Given - Provider: Nik Almendarez RN)1301 (Given - Provider: Nik Almendarez RN) midazolam (pf) (Versed) (1 mg/mL) multi-dose injection (CANCELED) ONCE PRN, Starting on Thu10/09/20 at 1250, Until Thu10/09/20 at 1703, Intra-Operative (Intra-Procedure), Routine 1247 (Given - Provid er: Nik Almendarez RN)1250 (Given - Provider: Nik Almendarez RN)1253 (Given - Provider: Nik Almendarez RN)1256 (Given - Provider: Nik Almendarez RN)1301 (Given - Provider: Nik Almendarez RN) documented in this encounter Care Teams Restaurant Hourly Manager Relationship Specialty Start Date End Date Cherelle Sauceda PA [address] [place] [address] PCP - General Family Medicine 09/24/20 documented as of this encounter
--- OUTSIDE RECORDS SUMMARY | 2024-02-02 16:18 | XMS_ITS | Encounter Summary ---
Author Organization [facility] Address [address] [place] [id number] Care Team Providers Care Grinding Operator Name Role Phone Unknown, Provider Primary Care Provider Encounter Details Date Type Department Care Team (Latest Contact Info) Description 05/13/2017 9:34 EST - 05/13/2017 23:59 EST Hospital Encounter [address] [address] Unknown, Provider, Discharge Disposition: Home or Self Care Social History Tobacco Use Types Packs/Day Years Used Date Smoking Tobacco: Never Assessed Sex and Gender Information Value Date Recorded Sex Assigned at Not on file Gender Identity Not on file Sexual Orientation Not on file documented as of this encounter Discharge Disposition Disposition Code Departure Means Destination Home or Self Residential documented in this encounter Plan of Treatment Not on file documented as of this encounter Visit Diagnoses Not on filedocumented in this encounter Care Teams Grinding Operator Relationship Specialty Start Date End Date Unknown, Provider, PCP - General 02/28/15 documented as of this encounter
--- OUTSIDE RECORDS SUMMARY | 2024-02-02 16:18 | XMS_ITS | Encounter Summary ---
Author Organization [facility] [place] [address] Care Team Providers Care Hair Cutter Name Role Phone Curt Roman Primary Care Provider [phone] Reason for Visit * Reason Comments Dermatitis Encounter Details Date Type Department Care Team (Late st Contact Info) Description 11/02/2017 4:00 PM EDT Office Visit Dermatology at [facility] [address] [place] [address] Barb Tompkins MD [facility] [address] [address] Eczema, unspecified type (Primary Dx) Social History Tobacco Use Types Packs/Day Years Used Date Smoking Tobacco: Former Smokeless Tobacco: Never Sex and Gender Information Value Date Recorded Sex Assigned at Male 10/29/2020 7:31 AM EDT Gender Identity Not on file Sexual Orientation Straight 10/29/2020 7: 31 AM EDT documented as of this encounter Progress Notes * Barb Tompkins MD - 11/02/2017 4:00 PM EDT Images from the original note were not included. DERMATOLOGY - ESTABLISHED PATIENT FOLLOW-UP Date of service: 11/02/2017 Kristopher Canela : 1980, 37 y.o. Chief Complaint Patient presents with ??? Dermatitis HPI: Kristopher Canela is a 37 y.o. male last seen by myself on 10/08/2017. Mr. Canela returns today for: Rash. He has been treated with Prednisone taper 60 mg x 5 days, 40 mg x 5 days, 20 mg x 5 days. Completed course one week ago. Since stopping the Prednisone, he has broken out again on his lower legs. He feels that it might be starting again on his arms and abdomen as well. Reports the rash is veryitchy. States he has been relatively diligent with moisturizing, except for the past few days. Uses Dove soap and Free & Clear shampoo. Denies hx of asthma. Relevant Skin History: - Okay to leave detailed message with results? Yes ?? Family History: Family members with allergic rhinitis. No known hx of psoriasis ?? Relevant Social History: - Carleen - Lives in [place], [place] - Works for [employer] - Has a partner Medications: Current Outpatient Prescriptions Medication Sig Dispense Refill ??? triamcinolone (KENALOG) 0.1 % Ointment Apply [...] and in no noticeable distress. - Skin: Skin examination of the scalp, face, ears, neck, back, chest, abdomen, right and left upperextremities, right and left lower extremities, hands, feet, and buttocks was normal with the exception of the findings listed below. Genitalia not examined. Diagnosis/Skin findings/Assessment/Plan: 1. Eczematous dermatitis--recurring: Bilateral lower legs: Eczematous plaques. Lower abdomen: Postinflammatory hyperpigmentation. -Favoring atopic dermatitis. Contact dermatitis is also possible but less likely. Patient may benefit from patch testing in the future. -Advised patient to moisturize 1-2 times a day. -Discussed other treatment options, such as cyclosporine and mycophenolate mofetil. Patient has a history of hypertension. Discussed the risks and benefits of mycophenolate mofetil. Patient deferred treatment at this time with this medication. - Rx: Aug betamethasone dipropionate 0.05% ointment - Apply BID to affected areas for 3 weeks, thentake 1 week off. Repeat as needed. - Recommended wrapping affected areas with Saran wrap after applying betamethasone for about an hour when possible. -Recommended home light therapy: To spend time outdoors between the hours of 10 AM and 12 PM, with sun exposure to the whole body for 15-30 minutes. Do this 2-3 times per week. Counseled on the risk of skin cancer with this method. RTC in 2 months for f/u. Scheduled upon exiting. Note initiated by VISHNU MCHUGH LPN. I, Anastasiia Richmond, have performed the documentation for this encounter in the presence of and acting as a scribe for Barb Tompkins MD. I performed the above scribed service and agree with the accuracy of the documentation in this encounter. Reviewed and signed by: Barb Tompkins MD Resident in Dermatology [facility] Patient seen and evaluated with staff gift packer: Rob Benedict MD Section of Dermatology [facility] * Will Benedict MD - 11/02/2017 4:00 PM EDT I directly supervised Dr. Barb Tompkins during this office visit. Dr. Tompkins presented the history and physical exam to me. I then saw and examined this patient with Dr. Tompkins. We reviewed the history and pertinent details and I confirmed the physical findings. I agree with the details of the history and physical exam as documented in Dr. Tompkins's note. WILL BENEDICT MD Staff Physician documented in this encounter Plan of Treatment Not on file documented as of this encounter Visit Diagnoses Diagnosis Eczema, unspecified type- Primary documented in this encounter Care Teams Hair Cutter Relationship Specialty Start Date End Date Curt Roman PA [address] [place] [address] PCP - General General Internal Medicine 06/18/1709/23 documented as of this encounter
--- OUTSIDE RECORDS SUMMARY | 2024-02-02 16:18 | XMS_ITS | Continuity of Care Document ---
Author Organization [facility] Address [address] [place] [address] Care Team Providers Care Heading Matcher And Assembler Name Role Phone ARMANDO ZAIDI PA-C Primary Care Phy edil Encounter [facility] NBR [id number] Date(s): 08/06/23 - 08/06/[address] [address]- [place] Discharge Disposition: Home or Self Care Attending Physician: ARMANDO ZAIDI PA-C Admitting Physician: ARMANDO ZAIDI PA-C Referring Physician: ARMANDO ZAIDI PA-C Results Radiology Reports * Exam Date Time Procedure Performing Provider Status 08/06/23 10:02 AM XR Barium Swallow Marzena James; th (Verified) Notes: (XR Barium Swallow) Reason For Exam: DYSPHAGIA XR Barium Swallow EXAM DESCRIPTION: XR Barium Swallow 08/06/2023 INDICATION: DYSPHAGIA TECHNIQUE: A biphasic barium swallow examination was performed. The patient was studied in the standing LPO and recumbent CARTER projections. Additional small [id number] AP and lateral views of the hypopharynx region were obtained Fluoroscopy time: 0.8 minutes Image number: [id number] COMPARISON: None FINDINGS: The patient swallowed the barium suspension without difficulty. The hypopharynx region is unremarkable. The esophagus demonstrates normal distensibility and peristalsis with no ulceration, stricture or neoplasm. No significant esophageal dysmotility. Normal EG junction with no hiatal hernia. No significant gastroesophageal reflux was demonstrated during the examination. IMPRESSION: Normal biphasic barium swallow examination. JOB #: [id number] Final Signed by: Fritz Perry MD Signed (Electronic Signature): 08/06/2023 10:15 am Patient Care team information Care Team Personnel Name: DYAN MCKAY, ARMANDO WIGGINS Position: No Access Member Role: Primary Care Physician Address: Address: [address] Care Team Related Persons Name: DEMETRIO NAVARRO
--- OUTSIDE RECORDS SUMMARY | 2024-02-02 16:18 | XMS_ITS | Encounter Summary ---
Author Organization [facility] Address [facility] [place] [address] Care Team Providers Care Lymphedema Therapist Name Role Phone Curt Roman Primary Care Provider [phone] Reason for Visit * Reason Comments Rash * Consultation (Routine) - Specialty Diagnoses / Procedures Referred By Erlin garcia Referred To Contact Dermatology Diagnoses Itchy rash Anirudh Craven, DO [address] [place] [address] [facility] [address] [place] [address] Referral ID Status Reason Start Date Expiration Date V isits Requested Visits Authorized [id number] Consult, [facility] 09/27/2017 09/27/2018 10 10 Encounter Details Date Type Department Care Team (Late st Contact Info) Description 10/08/2017 3:15 PM EDT Office Visit Dermatology at [facility] [address] [place] [address] Barb Tompkins MD [facility] [address] [address] Atopic dermatitis, unspecified type (Primary Dx) Social History Tobacco Use Types Packs/Day Years Used Date Smoking Tobacco: Former Smokeless Tobacco: Never Sex and Gender Information Value Date Recorded Sex Assigned at Male 10/29/2020 7:31 AM EDT Gender Identity Not on file Sexual Orientation Straight 10/29/2020 7: 31 AM EDT documented as of this encounter Patient Instructions * Patient Instructions* Barbara Morrow RN - 10/08/2017 3:15 PM EDT Sensitive Skin Care You have been diagnosed with a condition that requires a sensitive skin care regimen. It is very important to follow this plan as outlined below. ?? Discontinue ALL current personal care products. This includes soap, body wash, shampoo and conditioner, fragrance, nail kazakh, lotions and creams, laundry soap and fabric softener. ?? Take short, cool showers. Use soap only where absolutely needed. Pat skin dry. ?? Apply triamcinolone rx to area of body daily/twice daily for 2 weeks then off x 7 days ?? Immediately after bathing, apply moisturizing cream to body. ?? Use only the following personal care products. They are are recommended by our clinic because they have been extensively tested and are least likely to cause distress to your skin. ?? Soap: Dove Unscented Bar Soap or Vanicream bar soap ?? Facial cleanser: CeraVe Foaming Facial Cleanser or CeraVe Hydrating Cleanser ?? Shampoo and Conditioner: Free&Clear shampoo, Free&Clear conditioner ?? Moisturizer: CeraVe cream, CeraVe lotion, CeraVe lite lotion, Vanicream cream ?? Laundry Detergent: ALL Free&Clear. Do not use fabric softener or dryer sheets. documented in this encounter Progress Notes * Barb Tompkins MD - 10/08/2017 3:15 PM EDT Images from the original note were not included. DERMATOLOGY - NEW PATIENT NOTE Date of service: 10/08/2017 Kristopher Cnaela : 1980, 37 y.o. Chief Complaint Patient presents with ??? Rash HPI: Kristopher Canela is a 37 y.o. male referred by Anirudh Craven with the following concerns: March 2017 had diverticulitis, treated with Flagyl and Cipro as outpatient. Multiple episodes of diverticulitis in the past treated w the same medications in past. May 2017 started itching, has been increasingly worse, better with each prednisone taper. Transient, however. Rebounds after completing these courses One course ~2 weeks -- Dr. Vital from [facility]. States he had a biopsy on his phillips, showed eczematous changes -- outside path, we do not have it. Using Ivory baby soap, All free and clear laundry detergent. Endorses mild seasonal allergies Denies new travel, no new illness/surgery. Relevant Skin History: - Okay to leave detailed message with results? yes Family History: Family members with allergic rhinitis. Relevant Social History: - Jeeping Meds: Current Outpatient Prescriptions Medication Sig Dispense Refill ??? clobetasol (TEMOVATE) 0.05 % Ointment apply to RIGHT PHILLIPS, ABDOMEN, BOTH SHOULDERS twice a day UNTIL RASH CLEARS 0 ??? lisinopril (PRINIVIL;ZESTRIL) 10 mg Tablet No current facility-administered medications for this visit. Allergies: No Known Allergies Review of Systems: - General: Feels well. A thorough review of system was performed. Denies unintentional weight loss,fever, night sweats, chest pain/palpitation, headaches/blurred vision, difficulty swallowing, diarrhea, N/V, hematochezia/melena, dysuria/hematuria. - Skin: No other skin concerns. Examination: - Constitutional: Patient was alert, well-appearing and in no noticeable distress. - Skin: Patient was asked to disrobe to the level of their comfort. A total body skin exam except for areas covered by underwear was performed. This includes examination of the skin of the face, ears, neck, chest, axillae, left and right upper and lower extremities, hands and feet, abdomen, and except the areas covered by underwear were not examined. Diagnosis/Skin findings/Assessment/Plan: 1. Eczema dermatitis: scattered on lateral thighs, phillips, lower abdomen, upper arms and upper back were pink eroded papules coalescing into scaly plaques with weeping serous fluid. -DDx: contact dermatitis leading to id reaction, unlikely drug reaction. -probable atopic diathesis. Trigger currently unknown. Although preceding this rash was diverticulitis treated w Abx -- unclear if patient ever developed a drug rash. -empiric treatment at this time, may need patch testing in the future. -Rx: Triamcinolone 0.1% ointment. Apply twice daily to arms, legs, trunk for two weeks, take a weekoff. Repeat cycle as needed. - discussed w/ pt the side effects of topical steroids, which include atrophy of the skin, tachyphylaxis, allergic reactions, and rarely systemic effects - pt instructed NOT to apply to the face nor intertriginous areas unless instructed to do so. - pt instructed not to use it for more than allotted duration, given the risk of side effects with longer duration of use. -Rx: Prednisone taper: 60 mg x 5 days 40 mg x 5 days 20 mg x 5 days Discussed potential adverse effects of prednisone including mood lability, insomnia, increased appetite, increased susceptibility to infections, osteoporosis, osteonecrosis of the femoral head -Sensitive skin care regimen. -Will set up patch testing in near future. 10-15 days post prednisone before patch testing. RTC: In 3-4 weeks for eczematous dermatitis. The following photos were obtained with patient consent: Note initiated by BARBARA MORROW RN. I performed the above scribed service and agree with the accuracy of the documentation in this encounter. Reviewed and signed by Barb Tompkins MD Resident in Dermatology [facility] Patient seen in conjunction with staff formula clerk: Will Benedict MD Section of Dermatology [facility] * Will Benedict MD - 10/08/2017 3:15 PM EDT I directly supervised Dr. [...] as of this encounter Visit Diagnoses Diagnosis Atopic dermatitis, unspecified type- Primary documented in this encounter Care Teams Lymphedema Therapist Relationship Specialty Start Date End Date Curt Roman PA [address] [place] [address] PCP - General General Internal Medicine 06/18/1709/23 documented as of this encounter
--- OUTSIDE RECORDS SUMMARY | 2024-02-02 16:18 | XMS_ITS | Encounter Summary ---
Author Organization [facility] [place] [address] Care Team Providers Care 3D Specialist Name Role Phone Curt Roman Primary Care Provider [phone] Reason for Visit * Reason Comments Follow-up Encounter Details Date Type Department Care Team (Late st Contact Info) Description 06/18/2017 4:30 PM EST Office Visit Dermatology at [address] [address] Trevon Vital MD [address] [facility] [place] [address] Dermatographism; Eczema, unspecified type Social History Tobacco Use Types Packs/Day Years Used Date Smoking Tobacco: Former Smokeless Tobacco: Never Sex and Gender Information Value Date Recorded Sex Assigned at Male 10/29/2020 7:31 AM EDT Gender Identity Not on file Sexual Orientation Straight 10/29/2020 7: 31 AM EDT documented as of this encounter Progress Notes * Trevon Vital MD - 06/18/2017 4:30 PM EST Problem: Dermatitis Patient is a 36-year-old whom I last saw when he was 15 acne and warts. 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 He has had problems in the past some 10 years ago when he was working and living in [place] with eczema. He was treated at that time by air defence officer with oral course of prednisone (which he did not take instead relying on his topical clobetasol.) His skin is then largely stayed clear until just recently he has been getting intermittent patches of dermatitis on the shins first one side or the other and then both more recently over the last several months he has had a semicontinuous flare of scaling and itching or itching papules on the arms and the legs and the torso.He has been treated with a course of prednisone by Curt Roman PA-C. Patient been trying to usehis clobetasol cream as well. There has been no changes medications. He is been on lisinopril aspirin topical clobetasol, and taking loratadine once in the morning and Benadryl at night. He states that his significant other Crystal has no rash no dermatitis. They been together for the last 2 years.A punch biopsy was performed by Curt in April and this showed spongiotic dermatitis with numerous eosinophils. There has been no change in her soaps or shampoos the home skin care products. They do use frequent fragranced fabric softeners or dryer sheets but infrequent free detergent for the laundry. Physical examination reveals excoriated papules present on the arms his leg is back his upper chest. He has patch patches of eczematous dermatitis on the anterior shins left and right and on the lateral aspect of his calf. He has no facial involvement. 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 Assessment and plan: Flaring eczematous dermatitis with dermatographia. 1. Likely allergic contact dermatitis to external source, with flaring due to scratching in an atopic 2. Recommend that we get again begin a course of prednisone to bring his pruritus under control. Will prescribe a course of 20 mg taken 3 p.o. every morning for 3 days then 2 p.o. every morning for 1week then 1 p.o. every morning for 1 week then 1 p.o. every other day for 7 doses, dispense 1 course. This will be called into his [facility] in [place]. 3. Continue clobetasol but he will be given a fresh prescription 60 g clobetasol cream apply twice daily to affected areas of eczematous dermatitis. I do not think to be able to lie on the topical slowly by itself this time but we really should take the course of prednisone because of the generalized nature of his dermatitis. Clobetasol prescription will be called into his [facility] in [facility]. 4. Advised patient to stop the use of fragrance fabric softeners or dryer sheets may use bounce free but try to simplify his regimen and not use them at all. 5. Discussed with significant other crystal that he topical that she uses on her skin may be transferred unwittingly to Diana the adjacent skin and may be a factor in triggering his itching and dermatitis. She will again review at home although she has been using her skin as even 1 application every 2 weeks could trigger and may keep this itching/dermatitis going 6. I have asked them to contact me with her progress in a week to 2 does not see improvement may beable to manage over the phone otherwise return to clinic. 7. Recommended that he increase his loratadine dose to 10 mg 2 p.o. every morning, and 1 or 2 p.o. nightly. May take Benadryl additionally at night if needed for itching. CC: Curt Roman PA-C documented in this encounter Plan of Treatment Not on file documented as of this encounter Visit Diagnoses Diagnosis Dermatographism Dermatographic urticaria Eczema, unspecified type documented in this encounter Care Teams 3D Specialist Relationship Specialty Start Date End Date Curt Roman PA [address] [place] [address] PCP - General General Internal Medicine 06/18/1709/23 documented as of this encounter
--- OUTSIDE RECORDS SUMMARY | 2024-02-02 16:18 | XMS_ITS | Encounter Summary ---
Author Organization [facility] Address [address] [place] [address] Care Team Providers Care Packing Machine Pilot Can Router Name Role Phone Unknown, Provider Primary Care Provider [phone] Encounter Details Date Type Department Care Team (Late st Contact Info) Description 05/13/2017 Results Only [facility] [phone] Oly Gracia PA-C [address] [place] [address] Social History Tobacco Use Types Packs/Day Years Used Date Smoking Tobacco: Never Assessed Sex and Gender Information Value Date Recorded Sex Assigned at Not on file Gender Identity Not on file Sexual Orientation Not on file documented as of this encounter Plan of Treatment Not on file documented as of this encounter Procedures Procedure Name Priority Date/Time Associated Diagnosis Comments SURGICAL PATHOLOGY Routine 05/13/2017 16 :06 EST documented in this encounter Results * SURGICAL PATHOLOGY (05/13/2017 16:06 EST) Pathology Report: SURGICAL PATHOLOGY REPORT Reports generated via electronic interface contain original data; however they are lacking the format of the original report. Caution should be taken when reading/interpreting unformatted reports. Name: ? KRISTOPHER CANELA ? Accession #: ? [id number] ? : ? 1980 (Age: 36) ??M ? Collect Date: ? 05/13/2017 ? Location: ? [facility] ? Receive Date: ? 05/14/2017 ? Provider: OLY GRACIA PAC Copy to: ? Final Pathologic Diagnosis: SKIN OF PHILLIPS, RIGHT LATERAL, PUNCH BIOPSY: - Subacute spongiotic dermatitis. ??See microscopic and comment. Comment: The findings are those of an eczematous process. ??The numerous eosinophils raises an allergic contact etiology as a consideration, albeit, other forms of eczematous dermatitis would be within the differential. ??(Dr. Rice)/[facility] Microscopic Description: Sections consist of a punch biopsy of skin. ??There is compacted orthokeratosis with parakeratosis and entrapped serum crust. ??The epidermis shows acanthosis with mild-moderate spongiosis. ??There is a moderately dense superficial perivascular and interstitial lymphomononuclear infiltrate which includes eosinophils. ??There is an associated exocytosis into the overlying epidermis. (Dr. Rice)/[facility] ?? Document reviewed and electronically signed by: MAURICIO RICE MD Report ??Date: 05/15/2017 10:28 By the signature above, the attending physician certifies that he/she has personally conducted a gross and/or microscopic examination of the described specimens and rendered or confirmed the above diagnosis. Specimen(s) Received: 5.0 mm punch biopsy right lateral phillips Clinical History: Itchy, scaly, red-inflamed skin plaques on right phillips, lower abdomen and bilateral shoulders x2-3 weeks Gross Description: ? Received in formalin labelled with proper patient identification (initials H, J) and R phillips is a punch biopsy of crystal-pink, erythematous, scaly skin (0.5 cm in diameter x 0.4 cm in thickness). The specimen is bisected and submitted entirely in 1. MCKENNA Gavin (ASCP) 05/14/2017 4:31 PM End of Report [facility] 05/13/2017 16:0 6 EST 05/14/2017 16:06 EST Oly Gracia PA-C PATHOLOGY ORDERAB LES [facility] [address] [place] [address] documented in this encounter Visit Diagnoses Not on filedocumented in this encounter Care Teams Packing Machine Pilot Can Router Relationship Specialty Start Date End Date Unknown, Provider, PCP - General 02/28/15 documented as of this encounter
--- OUTSIDE RECORDS SUMMARY | 2024-02-02 16:18 | XMS_ITS | Encounter Summary ---
Author Organization [facility] [place] [address] Care Team Providers Care Children'S Tutor Name Role Phone Curt Roman Primary Care Provider [phone] Reason for Visit * Reason Comments Follow-up Encounter Details Date Type Department Care Team (Late st Contact Info) Description 03/15/2018 8:30 AM EST Office Visit Dermatology at [address] [address] Barb Tompkins MD [facility] [address] [place] [address] Encounter for allergy testing (Primary Dx) Social History Tobacco Use Types Packs/Day Years Used Date Smoking Tobacco: Former Smokeless Tobacco: Never Sex and Gender Information Value Date Recorded Sex Assigned at Male 10/29/2020 7:31 AM EDT Gender Identity Not on file Sexual Orientation Straight 10/29/2020 7: 31 AM EDT documented as of this encounter Progress Notes * Brab Tompkins MD - 03/15/2018 8:30 AM EST Images from the original note were not included. DERMATOLOGY - PATCH TEST -- INITIAL ENCOUNTER Date of service: 03/15/2018 Kristopher Canela : 1980, 37 y.o. Chief Complaint: Application of patch testing. HPI: Eczematous rash improves with topical steroids. Patient has not been diligent w application. Not moisturizing often. Following sensitive skin care regimen. Here for patch testing to r/o a contactant. Not wearing compression stockings. Back is clear. Not on antihistamines nor prednisone. Allergic History: Allergies Allergen Reactions ??? Penicillins ROS: ?? General: Felling well overall. ?? Skin: As per HPI. No other skin concerns. Examination: - Constitutional: Patient was awake, alert, oriented and in no noticeable distress. - Skin: The patient was instructed to undress to the level of their comfort. A waist-up exam was performed,which included the trunk, arms, hands, neck, face, and scalp. Other Relevant Findings: - - Back is clear for patch testing. Verbal consent was given by patient to obtain and chart the following picture(s): Assessment: # Patch testing application Appropriate for extended patch testing evaluation because: ?? This dermatitis may have a multifactorial background, with contact allergy as a significant contributor. - Explained that is often difficult to suspect all allergens/sensitizers from history and clinical exam alone, therefore, an expanded screening allergen series is used for testing. Plan: ?? Discussed patch testing procedure in-depth with patient . Explained that three visits are required for proper testing: ?? Allergens are placed on Thursday, removed and their positions marked on Thursday followed by an initial/preliminary reading, and final patch test reading/interpretation on Thursday. ?? Reviewed procedure and typical potential allergic reactions using photographs in a powerpoint presentation to educate the patient. I then allow her to ask questions, and show her what to expect. ?? Discussed common adverse reactions which include: itching from the tape, itching from positive reactions, irritation from the tape. ?? Discussed that serious adverse reactions are unlikely and very rare: ?? Hives, shortness of breath are very unlikely. ?? Headache, chest pain, joint aching, fever, or any other systemic symptoms are NOT associated with patch testing, and if pt develops any of these she should seek immediate medical care. ?? Discussed potential for flare-up of patient's dermatitis on previously- affected skin during the testing which seems to occur more frequently if relevant positive reactions develop during testing. ?? Discussed that other uncommon but possible adverse effect of patch testing is becoming allergic to something you were tested to. ?? Discussed expectations for the final patch visit: after the tests are interpreted on Thursday I will discuss the results with patient in-depth. An information sheet about contact allergy will be given summarizing the positive results. For each allergic reaction, the patient will receive an information sheet reviewing the allergen name, synonyms, potential cross-reacting chemicals, possible exposure sources, and potential alternative products as needed. ?? After the above discussion, patient voiced full understanding and agreement of the patch testingprocedure including its risks and benefits and agreed to proceed with Patch Testing. Verbal Consentobtained. ?? The [facility] 5692-6214 allergen patch test series was placed by my nurse. Allergens/Products Tested: ?? [facility] ([facility]) 8423-5462 allergen patch test series. ?? EXCLUDED Hydroperoxide of limonene 0.3% pet (number 56) and Hydroperoxide of linalool 1% pet. (number 34). ?? Total of 68 patches applied. Printed instructions and information regarding expectations and care were given and reviewed by thenurse. Follow-up: Return Thursday and Thursday for patch readings w me. Instructed to call with any questions or concerns. Barb Tompkins MD Resident in Dermatology [facility] Pager [phone] Staff climatology teacher: Kailash Dudley MD Section of Dermatology [facility] Level of Resident Supervision: Direct Supervision (The supervising physician is physically present with the resident and patient). * Kaliash Dudley MD - 03/15/2018 8:30 AM EST I directly supervised Dr. Tompkins in the care of this patient. I saw and evaluated this patient with Dr. Tompkins. He presented the history and physical exam details to me, then we saw the patient together and I confirmed these findings. I agree with details as written. My physical examination confirms Dr. Tompkins's findings. The assessment and plan were formulated in discussion with me at the time of visit and I agree withthem as documented. KAILASH DUDLEY MD FAAD Staff Physician documented in this encounter Plan of Treatment Not on file documented as of this encounter Visit Diagnoses Diagnosis Encounter for allergy testing- Primary Diagnostic skin and sensitization tests documented in this encounter Care Teams Children'S Tutor Relationship Specialty Start Date End Date Curt Roman PA [address] [place] [address] PCP - General General Internal Medicine 06/18/1709/23 documented as of this encounter
--- OUTSIDE RECORDS SUMMARY | 2024-02-02 16:18 | XMS_ITS | Encounter Summary ---
Author Organization [facility] [place] [address] Care Team Providers Care Wool Batting Worker Name Role Phone Cherelle Sauceda Primary Care Provider [phone]- [phone] Encounter Details Date Type Department Care Team (Latest Contact Info) Description 10/09/2020 11:39 AM EDT - 10/09/2020 3:02 PM EDT Hospital Encounter [place] [address] Jalil Qureshi MD [facility] [place] [address] Discharge Disposition: Home Social History Tobacco Use Types Packs/Day Years [...] occurs, please contact your Doctor. Please call [phone] before 8pm Mon-Fri with problems, questions or concerns. If you call after 8pm or on weekends, call the Hospital at [phone] and ask to speak to the Field Services Manager avionics manager and the welding machine operator gas metal arc will contact that person for you. When should you call for help? Call [phone] anytime you think you may need emergency [...] any problems. Where can you learn more? [email or web address] View your After Visit Summary and more online at [email or web address] If you would like to provide [...] cost to you. Content Version: 12.2 ?? [id number] [employer]. Care instructions adapted under license by [facility]. If you have questions about a medical condition or this instruction, always ask your healthcare professional. [employer] disclaims any warranty or liability for your [...] Qureshi MD - 10/09/2020 1:01 PM EDT Operative Note Patient Name: Kristopher Canela : [id number] MR#: [id number] Case Date: 10/09/2020 Surgeon: Surgeon(s) and Role: [...] PATHOLOGY Routine 10/09/2020 1:22 PM EDT Colonoscopy, Kayden Ga Snare ([id number]) 10/09/2020 12:37 PM EDT Diverticulitis Family history of colonic polyps COLONOSCOPY Routine 10/09/2020 12:24 PM EDT documented in this encounter Results * Surgical Pathology Report (10/09/2020 1:22 PM EDT) Final Diagnosis [id number] ? Location: 4T; EA06; A The signing pathologist has (i) examined the relevant preparation(s) for the specimen(s) and (ii) rendered or confirmed the diagnosis(es). . ?Surgical Pathology DIAGNOSIS A - Sigmoid colon polyp, excision: Tubular adenoma. B - Rectum polyp, excision: Tubular adenoma. Electronically signed by: ?Petty Jones MD Verified: ??10/16/2020 20:19 ??Pathologist Performed at: ??-[facility] Dept. of Pathology, [place], [place] SPECIMEN(S) SUBMITTED A - Sigmoid colon [...] labeled B1. ??ajw 10/16/2020 8:19 PM EDT [facility] GI Biopsy 10/09/2020 1:22 PM EDT 10/09/2020 1:22 PM EDT GI Biopsy 10/09/2020 1:22 PM EDT 10/09/2020 1:22 PM EDT Jalil Qureshi MD PATHOLOGY/CYTOLOGY O KESHAWN Performing Organization Address [facility]/ZIP [place] [address] * Specimen to Pathology (10/09/2020 1:22 PM EDT) AP Specimen 10/09/2020 1:22 PM EDT 10/09/2020 1:22 PM EDT Narrative [facility] - 10/09/2020 1:22 PM EDT Specimen requisition ordered. ??Separate Pathology report to follow Jalil Qureshi MD PATHOLOGY/CYTOLOGY O [place] Performing Organization Address City/[facility]/ZIP [place] [address] * Specimen to Pathology (10/09/2020 1:22 PM EDT) AP Specimen 10/09/2020 1:22 PM EDT 10/09/2020 1:22 PM EDT Narrative [facility] - 10/09/2020 1:22 PM EDT Specimen requisition ordered. ??Separate Pathology report to follow Jalil Qureshi MD PATHOLOGY/CYTOLOGY O [place]WN Performing Organization Address City/[facility]/ZIP Co de Phone Number [facility] [place] [address] * COLONOSCOPY (10/09/2020 12:24 PM EDT) COLONOSCOPY [facility] Endoscopy ___ Procedure Date: 10/09/2020 12:24 PM ? Patient Name: Kristopher Canela ? Date of : 1980 ? Age: 40 ? Order #: [id number] ? Instrument Name: [id number] ? ___ Procedure: ? Colonoscopy Indications: ? [...] personally performed the entire procedure. ? Jalil Qureshi, 10/09/2020 1:22:14 PM Number of Addenda: 0 Note Initiated On: 10/09/2020 12:24 PM PROVATION 10/09/2020 12:2 4 PM EDT Unknown GENERAL SURGICAL ORD ERABLES PROVATION documented in this encounter Visit Diagnoses Not on filedocumented in this encounter Administered Medications Inactive Administered Medications - up to 3 most recent administrations Medication Order MAR Action Action Date Dose Rate Site lactated ringers infusion 100 mL/hr, Intravenous, CONTINUOUS, Starting on 10/09/20 at 1215, Until Tu10/09/20 at 1437, Endoscopy (Day of Procedure) New Bag 10/09/2020 12:15 PM EDT 100 mL/hr 100 mL/hr documented in this encounter Active and Recently [...] mg/mL) injection (CANCELED) ONCE PRN, Starting on Thu10/09/20 at 1301, Until Thu10/09/20 at 1703, Intra-Operative (Intra-Procedure), Routine 1301 (Given [...] RN) documented in this encounter Care Teams Wool Batting Worker Relationship Specialty Start Date End Date Cherelle Sauceda PA [address] [place] [address] PCP - General Family Medicine 09/24/20 documented as of this encounter
[2024-02-02 19:44] LABS: Abs Immature Grans 0.03 10^3/uL (0.0-0.06); Absolute Basophil Count 0.06 10^3/uL (0.0-0.2); Absolute Eosinophil Count 0.26 10^3/uL (0.0-0.7); Absolute Lymphocyte Count 2.39 10^3/uL (1.2-3.4); Absolute Monocyte Count 0.69 10^3/uL (0.1-0.8); Absolute Neutrophil Count 5.06 10^3/uL (1.2-6.7); Basophils % 0.7 %; Eosinophils % 3.1 %; HCT 43.9 % (40.0-50.0); HGB 14.6 g/dL (13.5-17.5); Immature Grans % 0.4 %; Lymphocytes % 28.2 %; MCH 28.5 pg (27.0-33.0); MCHC 33.3 % (32.0-36.0); MCV 86 fL (80-95); MPV 10.9 fL (8.0-11.0); Monocytes % 8.1 %; Neutrophils % 59.5 %; Platelet Count 275 10^3/uL (130-400); RBC 5.12 10^6/uL (4.36-5.78); RDW 13.7 % (11.8-14.1); RDW-SD 43.8 fL; WBC 8.49 10^3/uL (4.4-10.8)
[2024-02-02 19:59] LABS: ALT 46 U/L (16-63); AST 32 U/L (15-37); Albumin 3.8 g/dL (3.4-5.0); Alkaline Phosphatase 71 U/L (46-116); Anion Gap 9.1 mmol/L (3-11); BUN 11 mg/dL (7-18); Bilirubin, Total 0.33 mg/dL (0.2-1.0); CO2 27.9 mmol/L (21.0-32.0); CREATININE 1.2 mg/dL (0.70-1.30); Calcium 9.6 mg/dL (8.5-10.1); Calculated LDL 103 mg/dL (<100); Chloride 107 mmol/L (98-107); Cholesterol 175 mg/dL (<200); Estimated GFR 76.95 (mL/min/1.73m2); Glucose 93 mg/dL (74-106); HDL Cholesterol 34 mg/dL (40-60); Potassium 4.5 mmol/L (3.5-5.1); Sodium 144 mmol/L (136-145); Total Protein 7.9 g/dL (6.4-8.2); Triglyceride 190 mg/dL (<150)
[2024-02-02 20:04] LABS: Hemoglobin A1C 5.7 % (<5.7)
== END 2024-02-02 16:15 | disposition home or self-care (01) ==
LOC: NCHCN 16:14
PROVIDERS: PCP Specialist/Technologist Athletic Trainer; Visit Provider Physician Assistant Medical
DX: I10 Essential (primary) hypertension (principal); K76.0 Fatty (change of) liver, not elsewhere classified; E66.9 Obesity, unspecified
CPT/HCPCS: 80053; 80061; 83036; 85025

== ENCOUNTER 2024-12-21 19:57 | Outpatient (REF) | payer OTHER, SELFPAY ==
[2024-12-21 15:39] LABS: Abs Immature Grans 0.01 10^3/uL (0.0-0.06); HCT 46.8 % (40.0-50.0); HGB 15.5 g/dL (13.5-17.5); Immature Grans % 0.2 %; MCH 28.2 pg (27.0-33.0); MCHC 33.1 % (32.0-36.0); MCV 85 fL (80-95); MPV 11.1 fL (8.0-11.0); Platelet Count 241 10^3/uL (130-400); RBC 5.49 10^6/uL (4.36-5.78); RDW 13.2 % (11.8-14.1); RDW-SD 41.0 fL; WBC 6.02 10^3/uL (4.4-10.8)
[2024-12-21 15:42] LABS: ESR 6 mm/hr (0-15)
[2024-12-21 16:13] LABS: ALT 39 U/L (16-63); AST 27 U/L (15-37); Albumin 3.9 g/dL (3.4-5.0); Alkaline Phosphatase 53 U/L (46-116); Anion Gap 5.8 mmol/L (3-11); BUN 9 mg/dL (7-18); Bilirubin, Total 0.4 mg/dL (0.2-1.0); CO2 29.2 mmol/L (21.0-32.0); Calcium 9.6 mg/dL (8.5-10.1); Chloride 106 mmol/L (98-107); Estimated GFR 95.18 (mL/min/1.73m2); Glucose 123 mg/dL (74-106); Potassium 4.4 mmol/L (3.5-5.1); Sodium 141 mmol/L (136-145); Total Protein 7.5 g/dL (6.4-8.2); Triglyceride 171 mg/dL (<150)
[2024-12-21 16:15] LABS: C-Reactive Protein < 0.50 mg/dL (<or=0.5)
[2024-12-21 17:19] LABS: Calculated LDL 158 mg/dL (<100); Cholesterol 235 mg/dL (<200); HDL Cholesterol 43 mg/dL (>or=40)
[2024-12-21 17:28] LABS: Hemoglobin A1C 5.4 % (<5.7)
== END 2024-12-21 19:58 | disposition home or self-care (01) ==
LOC: NCHCN 19:57
PROVIDERS: PCP Specialist/Technologist Athletic Trainer; Visit Provider Physician Assistant Medical
DX: I10 Essential (primary) hypertension (principal); R73.03 Prediabetes; K76.0 Fatty (change of) liver, not elsewhere classified
CPT/HCPCS: 80053; 80061; 85652; 83036; 85025; 86140